=== PATIENT | female | born 1955 | race Caucasian/White ===

== ENCOUNTER 2023-01-01 00:51 | Emergency (ER) | payer OTHER ==
--- OUTSIDE RECORDS SUMMARY | 2023-01-01 00:59 | XMS REPORT | Continuity of Care Document ---
:1955 Author Organization [facility] t Address [address] [place] [address] [address] [place] [address] Care Team Providers Name Role Phone Asked, No Pcp Primary Care Physician Unavailable MANE FORD Attending Clinician Unavailable Maricruz Molina MD Attending Clinician MARICRUZ MOLINA Attending Clinician Unavailable Doctor Unassigned, [place] Attending Clinician Unavailable Livan Garcia Attending Clinician LIVAN DOBBS Attending Clinician Unavailable Pob, [facility] Main Attending Clinician Unavailable Draw, [facility] Attending Clinician Unavailable Payers Payer Name Policy Type Policy Number Effective Date Expiration Date S ource Problems Condition Condition Condition Status Onset Resolution Last Treating Co mments Source Name Details Category Date Date Treatment Clinician Date Urinary Urinary Disease Active Univers incontinen incontinen 9-11 it y of ce, ce, 00:00: [place] unspecifie unspecifie 00 Me dical d type d type Branch Bladder Bladder Disease Active Univers prolapse, prolapse, 07-31 ity of female, female, 00:00: [place] acquired acquired 00 Medica l Branch History of History of Disease Active 2020- U nivers partial 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-31 ity of thyroidect thyroidect [place] seb seb 00 Medical Branch Weight Weight Disease Active 2020- Univers gain gain 01-23 ity of status status 00:00: [place] post post 00 Medical gastric gastric Branch bypass bypass Chronic Chronic Disease Active 2020- Univers obstructiv obstructiv 01-23 it y of e e 00:00: [place] pulmonary pulmonary 00 Medi jocelyn disease, disease, Branch unspecifie unspecifie d 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 00:00: [place] gland gland 00 Medical Branch Orthostati Orthostati Disease Active 2020-0 U nivers c c 3-06 ity of hypotensio hypotensio 00:[place] n 00 [facility] Muscle Muscle Disease Active 2020-0 Univers weakness weakness 2-24 ity of (generaliz (generaliz [place] ed[place] ed[place] 00 Medical Branch History of History of Disease Active 2020-0 U nivers gastric gastric 2-24 ity of bypass bypass 00:00: [place] [facility] Adrenal Adrenal Disease Active 2020-0 Univers adenoma, adenoma, 2-24 ity of unspecifie unspecifie 00:[place] d d 00 Medical laterality laterality Br anch TSH TSH Disease Active 2020-0 Univers (thyroid-s (thyroid-s 2-24 it y of timulating timulating 00:[place] hormone hormone 00 Medical deficiency deficiency Br anch ) ) History of History of Disease Active 2020-0 U nivers thyroid thyroid 2-24 ity of surgery surgery 00:00: [place] 00 Medical Branch Dizziness Dizziness Disease Active 2020-0 Uni vers 2-24 ity of 00:00: [place] 00 Medical Branch Left leg Left leg Disease Active 2015-11 Unive rs pain pain 2-23 ity of 00:00: [place] [facility] Allergies, Adverse Reactions, Alerts Allergy Allergy Status Severity Reaction(s) Onset Inactive Treating Comm ents Source Name Type Date Date Clinician Cipro - Propensi Active Oral ty to 4-19 adverse 00:00: reaction 00 to drug Duloxeti Propensi Active Unknown - 0 Couldn't U nivers ne ty to See comments 3-06 stay ity of adverse 00:00: awake [place] reaction 00 Medical s Branch Gabapent Propensi Active Unknown - 2019-0 Full of Un loi in ty to See comments 3-06 anger, ity of Enacarbi adverse 00:00: HATED [place] l reaction 00 everythin Medic al s g, Branch explosive per patient DULOXETI DRUG Active Unknown-Cmnt 2019-0 Un loi NE INGREDI 3-06 ity of 00:00: [place] 00 Medical Branch GABAPENT DRUG Active Unknown-Cmnt 2019-0 Un loi IN INGREDI 3-06 ity of ENACARBI 00:00: [place] L 00 Medical Branch QUINOLON Drug Active Other-Cmnt Univ ers ES Class 2-24 ity of 00:00: [place] 00 Medical Branch Quinolon Propensi Active Other - See U nivers es ty to comments 2-24 ity of adverse 00:00: [place] reaction 00 Medical s [place] Codeine Propensi Active GI Methodi ty to Intolerance 1-10 st adverse 00:00: Hospita reaction 00 l s to drug Duloxeti Propensi Active Other (See Couldn't Methodi ne ty to Comments) 1-[address] adverse 00:00: awake Hospita reaction 00 l s to drug Gabapent Propensi Active Other (See Full of M ethodi in ty to Comments) 1-10 anger, st [place] adverse 00:00: HATED Hospita l reaction 00 everythin l s to g, drug explosive per patient Paroxeti Propensi Active Other (See Me thodi ne Hcl ty to Comments) 1-10 st adverse 00:00: Hospita reaction 00 l s to drug Ciproflo Propensi Active Anaphylaxis 2015-11 Stomach Univers xacin ty to 2-23 pain ity of adverse 00:00: [place] reaction 00 Medical [facility] Morphine Propensi Active Itching 2015-11 Unive rs ty to 2-23 ity of adverse 00:00: [place] reaction 00 [facility] CIPROFLO DRUG Active Anaphylaxis 2015-11 Uni vers XACIN INGREDI 2-23 ity of 00:00: [place] 00 [facility] MORPHINE DRUG Active ITCHING 2015-11 Univers INGREDI 2-23 ity of 00:00: [place] 00 Medical [place] Morphine Propensi Active Itching 2015- Metho di ty to 2-23 st adverse 00:00: Hospita reaction 00 l s to drug Quinolon Propensi Active Altered 2015-11 Stomach Meth vibha es ty to Mental 2-[address] adverse Status 00:00: Hospita reaction 00 l s to drug Social History Social Habit Start Date Stop Date Quantity Comments Source Exposure to Not sure [facility] SARS-CoV-2 [facility] (event) [place] Tobacco use and 2020-07-31 2020-07-31 Never used Universit y of exposure 00:00:00 00:00:00 [facility] Alcohol intake 2020-07-31 2020-07-31 Current University of 00:00:00 00:00:00 non-drinker of [facility] alcohol Branch (finding) Sex Ass[birth year] [facility] 00:00:00 00:00:00 Smoking Status Start Date Stop Date Source Tobacco smoking consumption Meth [facility] unknown Never smoker [facility] Medical [place] Medications Ordered Filled Start Stop Current Ordering Indication Dosage Frequency Signature Comments Components Source Medication Medication Date Date Medication? Clinician (SIG) Name Name SYMBICORT 2-0 No 160-4.5 INH 9-29 00:00: 00 SYMBICORT 2-0 No 160-4.5 INH 9- 00:00: 00 BUPROPION 2-0 No HCL 75MG 9-28 TAB 00:00: 00 BUPROPION 2022-0 No HCL 75MG 9-28 TAB 00:00: 00 Dose 2-0 No Unknown 8-15 00:00: 00 Dose 2022-0 No Unknown 8-15 00:00: 00 Ventolin 2-0 No 2mcg/ac HFA 90 7-21 tuation mcg/actuati 00:00: on aerosol 00 inhaler Zetia 10 mg 2-0 No 1mg tablet 06-09 00:00: 00 valacyclovi 2022-0 No 1mg r 500 mg 7-21 tablet 00:00: 00 baclofen 10 2-0 No 1mg mg tablet 06-09 00:00: 00 albuterol 2-0 No 3/3 mL sulfate 2.5 7-21 (0.083 mg/3 mL 00:00: %) (0.083 %) 00 solution for nebulizatio n Dose 2-0 No Unknown 06-09 00:00: 00 Ventolin 2022-0 No 2mcg/ac HFA 90 7-21 tuation mcg/actuati 00:00: on aerosol 00 inhaler Zetia 10 mg 2-0 No 1mg tablet 06-09 00:00: 00 valacyclovi 2022-0 No 1mg r 500 mg 7-21 tablet 00:00: 00 baclofen 10 2-0 No 1mg mg tablet 06-09 00:00: 00 albuterol 2022-0 No 3/3 mL sulfate 2.5 7-21 (0.083 mg/3 mL 00:00: %) (0.083 %) 00 solution for nebulizatio n Dose 2021-0 No Unknown 7-21 00:00: 00 Dose 2-0 No Unknown 7-19 00:00: 00 Dose 2-0 No Unknown 7-19 00:00: 00 Dose 2-0 No Unknown 7-19 00:00: 00 Dose 2-0 No Unknown 7-19 00:00: 00 Dose 2-0 No Unknown 7-19 00:00: 00 Dose 2-0 No Unknown 7-19 00:00: 00 Dose 2-0 No Unknown 7-18 00:00: 00 Dose 2-0 No Unknown 7-18 00:00: 00 Dose 2-0 No Unknown 7-18 00:00: 00 Dose 2-0 No Unknown 7-18 00:00: 00 Dose 2-0 No Unknown 7-18 00:00: 00 Dose 2-0 No Unknown 7-18 00:00: 00 Dose 2-0 No Unknown 7-18 00:00: 00 Dose 2-0 No Unknown 7-18 00:00: 00 Zetia 10 mg 2-0 No 1mg tablet 7-14 00:00: 00 tizanidine 2-0 No 1mg 4 mg 7-14 capsule 00:00: 00 Zetia 10 mg 2-0 No 1mg tablet 7-14 00:00: 00 tizanidine 2-0 No 1mg 4 mg 7-14 capsule 00:00: 00 Dose 2-0 No Unknown 4-19 00:00: 00 Dose 2-0 No Unknown 4-19 00:00: 00 Dose 2-0 No Unknown 4-19 00:00: 00 Dose 2-0 No Unknown 4-19 00:00: 00 Dose 2-0 No Unknown 4-19 00:00: 00 Dose 2-0 No Unknown 4-19 00:00: 00 Dose 2-0 No Unknown 4-19 00:00: 00 Dose 2-0 No Unknown 4-19 00:00: 00 Dose 2-0 No Unknown 4-19 00:00: 00 Dose 2-0 No Unknown 4-19 00:00: 00 Dose 2-0 No Unknown 4-19 00:00: 00 Dose 2022-0 No Unknown 4-19 00:00: 00 Dose 2022-0 No Unknown 4-19 00:00: 00 Dose 2-0 No Unknown 4-19 00:00: 00 Dose 2-0 No Unknown 4-19 00:00: 00 Dose 2022-0 No Unknown 4-19 00:00: 00 Dose 2022-0 No Unknown 4-19 00:00: 00 Dose 2-0 No Unknown 4-19 00:00: 00 Dose 2-0 No Unknown 4-19 00:00: 00 Symbicort 2-0 No 2mcg/ac 160 mcg-4.5 4-19 tuation mcg/actuati 00:00: on HFA 00 aerosol inhaler Ventolin 2-0 No 2mcg/ac HFA 90 4-19 tuation mcg/actuati 00:00: on aerosol 00 inhaler valacyclovi 2-0 No 1mg r 500 mg 4-19 tablet 00:00: 00 Dose 2-0 No Unknown 4-19 00:00: 00 valacyclovi 2-0 No 1mg r 500 mg 4-19 tablet 00:00: 00 albuterol 2-0 No 3/3 mL sulfate 2.5 4-19 (0.083 mg/3 mL 00:00: %) (0.083 %) 00 solution for nebulizatio n Dose 2021-0 No Unknown 4-19 00:00: 00 Dose 2-0 No Unknown 4-19 00:00: 00 Dose 2-0 No Unknown 4-19 00:00: 00 Dose 2-0 No Unknown 4-19 00:00: 00 Dose 2-0 No Unknown 4-19 00:00: 00 Dose 2-0 No Unknown 4-19 00:00: 00 Dose 2-0 No Unknown 4-19 00:00: 00 Dose 2-0 No Unknown 4-19 00:00: 00 Dose 2-0 No Unknown 4-19 00:00: 00 Dose 2-0 No Unknown 4-19 00:00: 00 Dose 2-0 No Unknown 4-19 00:00: 00 Dose 2-0 No Unknown 4-19 00:00: 00 Dose 2-0 No Unknown 4-19 00:00: 00 Dose 2022-0 No Unknown 4-19 00:00: 00 Dose 2022-0 No Unknown 4-19 00:00: 00 Dose 2022-0 No Unknown 4-19 00:00: 00 Dose 2022-0 No Unknown 4-19 00:00: 00 Dose 2022-0 No Unknown 4-19 00:00: 00 Dose 2022-0 No Unknown 4-19 00:00: 00 Dose 2022-0 No Unknown 4-19 00:00: 00 Dose 2022-0 No Unknown 4-19 00:00: 00 Dose 2022-0 No Unknown 4-19 00:00: 00 Dose 2022-0 No Unknown 4-19 00:00: 00 Dose 2022-0 No Unknown 4-19 00:00: 00 Dose 2022-0 No Unknown 4-19 00:00: 00 Dose 2022-0 No Unknown 4-19 00:00: 00 Dose 2022-0 No Unknown 4-19 00:00: 00 Dose 2022-0 No Unknown 4-19 00:00: 00 Dose 2022-0 No Unknown 4-19 00:00: 00 Dose 2022-0 No Unknown 4-19 00:00: 00 Dose 2022-0 No Unknown 4-19 00:00: 00 Dose 2022-0 No Unknown 4-19 00:00: 00 Dose 2022-0 No Unknown 4-19 00:00: 00 Dose 2022-0 No Unknown 4-19 00:00: 00 Dose 2022-0 No Unknown 4-19 00:00: 00 Dose 2022-0 No Unknown 4-19 00:00: 00 Dose 2022-0 No Unknown 4-19 00:00: 00 Dose 2022-0 No Unknown 4-19 00:00: 00 Dose 2022-0 No Unknown 4-19 00:00: 00 Dose 2022-0 No Unknown 4-19 00:00: 00 Dose 2022-0 No Unknown 4-19 00:00: 00 Dose 2022-0 No Unknown 4-19 00:00: 00 Dose 2022-0 No Unknown 4-19 00:00: 00 Dose 2022-0 No Unknown 4-19 00:00: 00 Dose 2022-0 No Unknown 4-19 00:00: 00 Dose 2022-0 No Unknown 4-19 00:00: 00 Dose 2022-0 No Unknown 4-19 00:00: 00 Dose 2022-0 No Unknown 4-19 00:00: 00 Dose 2-0 No Unknown 4-19 00:00: 00 Dose 2-0 No Unknown 4-19 00:00: 00 Dose 2-0 No Unknown 4-19 00:00: 00 Symbicort 2-0 No 2mcg/ac 160 mcg-4.5 4-19 tuation mcg/actuati 00:00: on HFA 00 aerosol inhaler Ventolin 2-0 No 2mcg/ac HFA 90 4-19 tuation mcg/actuati 00:00: on aerosol 00 inhaler valacyclovi 2-0 No 1mg r 500 mg 4-19 tablet 00:00: 00 Dose 2-0 No Unknown 4-19 00:00: 00 valacyclovi 2-0 No 1mg r 500 mg 4-19 tablet 00:00: 00 albuterol 2-0 No 3/3 mL sulfate 2.5 4-19 (0.083 mg/3 mL 00:00: %) (0.083 %) 00 solution for nebulizatio n Dose 2021-0 No Unknown 4-19 00:00: 00 Dose 2-0 No Unknown 4-19 00:00: 00 Dose 2-0 No Unknown 4-19 00:00: 00 Dose 2-0 No Unknown 4-19 00:00: 00 Dose 2-0 No Unknown 4-19 00:00: 00 Dose 2-0 No Unknown 4-19 00:00: 00 Dose 2-0 No Unknown 4-19 00:00: 00 Dose 2-0 No Unknown 4-19 00:00: 00 Dose 2-0 No Unknown 4-19 00:00: 00 Dose 2-0 No Unknown 4-19 00:00: 00 Dose 2-0 No Unknown 4-19 00:00: 00 Dose 2-0 No Unknown 4-19 00:00: 00 Dose 2-0 No Unknown 4-19 00:00: 00 Dose 2-0 No Unknown 4-19 00:00: 00 Dose 2-0 No Unknown 4-19 00:00: 00 Dose 2-0 No Unknown 4-19 00:00: 00 Dose 2-0 No Unknown 4-19 00:00: 00 Dose 2022-0 No Unknown 4-19 00:00: 00 Dose 2022-0 No Unknown 4-19 00:00: 00 Dose 2022-0 No Unknown 4-19 00:00: 00 Dose 2022-0 No Unknown 4-19 00:00: 00 Dose 2022-0 No Unknown 4-19 00:00: 00 Dose 2022-0 No Unknown 4-19 00:00: 00 Dose 2022-0 No Unknown 4-19 00:00: 00 Dose 2022-0 No Unknown 4-19 00:00: 00 Dose 2022-0 No Unknown 4-19 00:00: 00 Dose 2022-0 No Unknown 4-19 00:00: 00 Dose 2022-0 No Unknown 4-19 00:00: 00 Dose 2022-0 No Unknown 4-19 00:00: 00 Dose 2022-0 No Unknown 4-19 00:00: 00 Dose 2022-0 No Unknown 4-19 00:00: 00 Dose 2022-0 No Unknown 4-19 00:00: 00 Dose 2022-0 No Unknown 1-10 00:00: 00 Dose 2022-0 No Unknown 1-10 00:00: 00 Dose 2022-0 No Unknown 1-10 00:00: 00 Dose 2022-0 No Unknown 1-10 00:00: 00 Dose 2022-0 No Unknown 1-10 00:00: 00 Dose 2022-0 No Unknown 1-10 00:00: 00 valacyclovi 2021-1 No 1mg r 500 mg 1-18 tablet 00:00: 00 valacyclovi 1-1 No 1mg r 500 mg 1-18 tablet 00:00: 00 valacyclovi 2021-1 No 1mg r 500 mg 1-16 tablet 00:00: 00 valacyclovi 2021-1 No 1mg r 500 mg 1-16 tablet 00:00: 00 Dose 2021-1 No Unknown 1-02 00:00: 00 Dose 2021-1 No Unknown 1-02 00:00: 00 valacyclovi 2021-1 No 1mg r 500 mg 0-25 tablet 00:00: 00 valacyclovi 2021-1 No 1mg r 500 mg 0-25 tablet 00:00: 00 Dose 2021-1 No Unknown 0-21 00:00: 00 Dose 1-1 No Unknown 0-21 00:00: 00 tizanidine 2021-1 No 1mg 4 mg 0-21 capsule 00:00: 00 Dose 2021-1 No Unknown 0-21 00:00: 00 Dose 2021-1 No Unknown 0-21 00:00: 00 tizanidine 2021-1 No 1mg 4 mg 0-21 capsule 00:00: 00 valacyclovi 2021-0 No 1mg r 500 mg 9-07 tablet 00:00: 00 valacyclovi 2021-0 No 1mg r 500 mg 9-07 tablet 00:00: 00 Ventolin 2021-0 No 2mcg/ac HFA 90 8-20 tuation mcg/actuati 00:00: on aerosol 00 inhaler Dose 1-0 No Unknown 8-20 00:00: 00 valacyclovi 2021-0 No 1mg r 500 mg 8-20 tablet 00:00: 00 Ventolin 2021-0 No 2mcg/ac HFA 90 8-20 tuation mcg/actuati 00:00: on aerosol 00 inhaler Dose 1-0 No Unknown 8-20 00:00: 00 valacyclovi 2021-0 No 1mg r 500 mg 8-20 tablet 00:00: 00 Zetia 10 mg 2021-0 No 1mg tablet 7-20 00:00: 00 valacyclovi 2021-0 No 1mg r 500 mg 7-20 tablet 00:00: 00 tizanidine 2021-0 No 1mg 4 mg 7-20 capsule 00:00: 00 Zetia 10 mg 2021-0 No 1mg tablet 7-20 00:00: 00 valacyclovi 2021-0 No 1mg r 500 mg 7-20 tablet 00:00: 00 tizanidine 2021-0 No 1mg 4 mg 7-20 capsule 00:00: 00 tizanidine 2021-0 No 1mg 4 mg 6-10 capsule 00:00: 00 tizanidine 2021-0 No 1mg 4 mg 6-10 capsule 00:00: 00 tizanidine 2021-0 No 1mg 4 mg 6-10 capsule 00:00: 00 tizanidine 2021-0 No 1mg 4 mg 6-10 capsule 00:00: 00 lisinopril 2021-0 No 1mg 10 mg 6-07 tablet 00:00: 00 valacyclovi 1-0 No 1mg r 500 mg 6-07 tablet 00:00: 00 Zetia 10 mg 1-0 No 1mg tablet 04-26 00:00: 00 tizanidine 1-0 No 1mg 4 mg 6-07 capsule 00:00: 00 lisinopril 1-0 No 1mg 10 mg 6-07 tablet 00:00: 00 valacyclovi 1-0 No 1mg r 500 mg 6-07 tablet 00:00: 00 Zetia 10 mg 1-0 No 1mg tablet 04-26 00:00: 00 tizanidine 1-0 No 1mg 4 mg 6-07 capsule 00:00: 00 Ventolin 1-0 No 2mcg/ac HFA 90 1-25 tuation mcg/actuati 00:00: on aerosol 00 inhaler Advair 1-0 No 1mcg/do Diskus 250 1-25 se mcg-50 00:00: mcg/dose 00 powder for inhalation Zetia 10 mg 2020-0 No 1mg tablet 25 00:00: 00 valacyclovi 1-0 No 1mg r 500 mg 1-25 tablet 00:00: 00 lisinopril 1-0 No 1mg 10 mg 1-25 tablet 00:00: 00 famotidine 1-0 No 1mg 20 mg 1-25 tablet 00:00: 00 tizanidine 1-0 No 1mg 4 mg 1-25 capsule 00:00: 00 albuterol 1-0 No 3/3 mL sulfate 2.5 1-25 (0.083 mg/3 mL 00:00: %) (0.083 %) 00 solution for nebulizatio n Ventolin 1-0 No 2mcg/ac HFA 90 1-25 tuation mcg/actuati 00:00: on aerosol 00 inhaler Advair 1-0 No 1mcg/do Diskus 250 1-25 se mcg-50 00:00: mcg/dose 00 powder for inhalation Zetia 10 mg 1-0 No 1mg tablet 25 00:00: 00 valacyclovi 2021-0 No 1mg r 500 mg 1-25 tablet 00:00: 00 lisinopril 2021-0 No 1mg 10 mg 1-25 tablet 00:00: 00 famotidine 1-0 No 1mg 20 mg 1-25 tablet 00:00: 00 tizanidine 1-0 No 1mg 4 mg 1-25 capsule 00:00: 00 albuterol 1-0 No 3/3 mL sulfate 2.5 -25 (0.083 mg/3 mL 00:00: %) (0.083 %) 00 solution for nebulizatio n Zetia 10 mg 2020-0 No 1mg tablet 1- 00:00: 00 Zetia 10 mg 2020-0 No 1mg tablet 113 00:00: 00 Diflucan 2020-1 No 1mg 150 mg 1-04 tablet 00:00: 00 Diflucan 2020-1 No 1mg 150 mg 1-04 tablet 00:00: 00 ezetimibe 2020-1 No 1mg 10 0-30 mg-simvasta 00:00: tin 10 mg 00 tablet valacyclovi 2020-1 No 1mg r 500 mg 0-30 tablet 00:00: 00 ezetimibe 2020-1 No 1mg 10 0-30 mg-simvasta 00:00: tin 10 mg 00 tablet valacyclovi 2020-1 No 1mg r 500 mg 0-30 tablet 00:00: 00 ezetimibe 2020-1 No 1mg 10 0-27 mg-simvasta 00:00: tin 10 mg 00 tablet ezetimibe 2020-1 No 1mg 10 0-27 mg-simvasta 00:00: tin 10 mg 00 tablet Zetia 10 mg 2019-1 No 1mg tablet 0-13 00:00: 00 Zetia 10 mg 2019-1 No 1mg tablet 0-13 00:00: 00 valacyclovi 2020-0 No 1mg r 500 mg 6-23 tablet 00:00: 00 lisinopril 2020-0 No 1mg 10 mg 6-23 tablet 00:00: 00 Zetia 10 mg 2020-0 No 1mg tablet 6-23 00:00: 00 valacyclovi 2020-0 No 1mg r 500 mg 6-23 tablet 00:00: 00 lisinopril 2020-0 No 1mg 10 mg 6-23 tablet 00:00: 00 Zetia 10 mg 2020-0 No 1mg tablet 6-23 00:00: 00 Zetia 10 mg 2020-0 No 1mg tablet 4-20 00:00: 00 pravastatin 2020-0 No 1mg 20 mg 4-20 tablet 00:00: 00 lisinopril 2020-0 No 1mg 10 mg 4-20 tablet 00:00: 00 Zetia 10 mg 2020-0 No 1mg tablet 4-20 00:00: 00 pravastatin 2020-0 No 1mg 20 mg 4-20 tablet 00:00: 00 lisinopril 2020-0 No 1mg 10 mg 4-20 tablet 00:00: 00 lisinopril 2020-0 2020- No 10mg Take 10 mg Univers 10 mg 01-23-06 by mouth ity of tablet 18:11: 00:00 daily. [place] 48 :00 [facility] Branch lisinopril 2020-0 2020- No 10mg Take 10 mg Univers 10 mg 01-2306 by mouth ity of tablet 18:11: 00:00 daily. [place] 48 :00 [facility] Branch polyethylen 2020-0 Yes Take by Uni vers e glycol 3-06 mouth. ity of 3350 17:24: [place] (MIRALAX Medical ORAL) Branch melatonin 2020-0 Yes Take by Unive rs 10 mg Tab 3-06 mouth. ity of 17:24: [address] Branch ferrous 2020-0 Yes Take by Univers sulfate 3-06 mouth. ity of (IRON ORAL) 17:24: [address] Branch Lactobacill 2020-0 Yes Take by Uni vers us 3-06 mouth. ity of acidophilus 17:24: [place] (PROBIOTIC Medical ORAL) Branch FOLIC ACID 2020-0 Yes Take by Univ ers ORAL 3-06 mouth. ity of 17:24: [address] Branch vitamin E 2020-0 Yes Take by Unive rs acetate 3-06 mouth. ity of (VITAMIN E 17:24: [facility]) Medical Branch calcium 2020-0 Yes Take by Univers carbonate/v 3-06 mouth. ity of itamin D3 17:24: [place] (VITAMIN Medical D-3 ORAL) Branch MAGNESIUM 2020-0 Yes Take by Unive rs ORAL 3-06 mouth. ity of 17:24: [address] Branch BIOTIN ORAL 2020-0 Yes Take by Uni vers 3-06 mouth. ity of 17:24: [address] Branch ezetimibe 2020-0 Yes 10mg Take 10 mg Un loi 10 mg 3-06 by mouth ity of tablet 17:24: daily. [address] amoxicillin 2020-0 Yes 1{tbl} Take 1 Un loi -clavulanat 3-06 tablet by ity of e 875-125 17:24: mouth 2 [place] mg per 27 (two) Medical tablet times Branch daily. polyethylen 2020-0 Yes Take by Uni vers e glycol 3-06 mouth. ity of 3350 17:24: [place] (MIRALAX 27 Medical ORAL) Branch melatonin 2020-0 Yes Take by Unive rs 10 mg Tab 3-06 mouth. ity of 17:24: [address] ferrous 2020-0 Yes Take by Univers sulfate 3-06 mouth. ity of (IRON ORAL) 17:24: [address] Lactobacill 2020-0 Yes Take by Uni vers us 3-06 mouth. ity of acidophilus 17:24: [place] (PROBIOTIC Medical ORAL) Branch FOLIC ACID 2020-0 Yes Take by Univ ers ORAL 3-06 mouth. ity of 17:24: [address] vitamin E 2020-0 Yes Take by Unive rs acetate 3-06 mouth. ity of (VITAMIN E 17:24: [place] ORAL) Medical Branch calcium 2020-0 Yes Take by Univers carbonate/v 3-06 mouth. ity of itamin D3 17:24: [place] (VITAMIN Medical D-3 ORAL) Branch MAGNESIUM 2020-0 Yes Take by Unive rs ORAL 3-06 mouth. ity of 17:24: [address] BIOTIN ORAL 2020-0 Yes Take by Uni vers 3-06 mouth. ity of 17:24: [address] ezetimibe 2020-0 Yes 10mg Take 10 mg Un loi 10 mg 3-06 by mouth ity of tablet 17:24: daily. [address] amoxicillin 2020-0 Yes 1{tbl} Take 1 Un loi -clavulanat 3-06 tablet by ity of e 875-125 17:24: mouth 2 [place] mg per 27 (two) Medical tablet times Branch daily. polyethylen 2020-0 Yes Take by Uni vers e glycol 3-06 mouth. ity of 3350 17:24: [place] (MIRALAX 27 Medical ORAL) Branch melatonin 2020-0 Yes Take by Unive rs 10 mg Tab 3-06 mouth. ity of 17:24: [place] 27 Medical Branch ferrous 2020-0 Yes Take by Univers sulfate 3-06 mouth. ity of (IRON ORAL) 17:24: [place] [address] Medical Branch Lactobacill 2020-0 Yes Take by Uni vers us 3-06 mouth. ity of acidophilus 17:24: [place] (PROBIOTIC Medical ORAL) Branch FOLIC ACID 2020-0 Yes Take by Univ ers ORAL 3-06 mouth. ity of 17:24: [address] Branch vitamin E 2020-0 Yes Take by Unive rs acetate 3-06 mouth. ity of (VITAMIN E 17:24: [place] ORAL) Medical Branch calcium 2020-0 Yes Take by Univers carbonate/v 3-06 mouth. ity of itamin D3 17:24: [place] (VITAMIN Medical D-3 ORAL) Branch MAGNESIUM 2020-0 Yes Take by Unive rs ORAL 3-06 mouth. ity of 17:24: [address] Branch BIOTIN ORAL 2020-0 Yes Take by Uni vers 3-06 mouth. ity of 17:24: [address] Branch ezetimibe 2020-0 Yes 10mg Take 10 mg Un loi 10 mg 3-06 by mouth ity of tablet 17:24: daily. [address] Branch amoxicillin 2020-0 Yes 1{tbl} Take 1 Un loi -clavulanat 3-06 tablet by ity of e 875-125 17:24: mouth 2 [place] mg per (two) Medical tablet times Branch daily. polyethylen 2020-0 Yes Take by Uni vers e glycol 3-06 mouth. ity of 3350 17:24: [place] (MIRALAX 27 Medical ORAL) Branch melatonin 2020-0 Yes Take by Unive rs 10 mg Tab 3-06 mouth. ity of 17:24: [address] Branch ferrous 2020-0 Yes Take by Univers sulfate 3-06 mouth. ity of (IRON ORAL) 17:24: [place] [address] Medical Branch Lactobacill 2020-0 Yes Take by Uni vers us 3-06 mouth. ity of acidophilus 17:24: [place] (PROBIOTIC Medical ORAL) Branch FOLIC ACID 2020-0 Yes Take by Univ ers ORAL 3-06 mouth. ity of 17:24: [address] Branch vitamin E 2020-0 Yes Take by Unive rs acetate 3-06 mouth. ity of (VITAMIN E 17:24: [place] ORAL) Medical Branch calcium 2020-0 Yes Take by Univers carbonate/v 3-06 mouth. ity of itamin D3 17:24: [place] (VITAMIN Medical D-3 ORAL) Branch MAGNESIUM 2020-0 Yes Take by Unive rs ORAL 3-06 mouth. ity of 17:24: [place] [address] Medical Branch BIOTIN ORAL 2020-0 Yes Take by Uni vers 3-06 mouth. ity of 17:24: [address] Branch ezetimibe 2020-0 Yes 10mg Take 10 mg Un loi 10 mg 3-06 by mouth ity of tablet 17:24: daily. [address] amoxicillin 2020-0 Yes 1{tbl} Take 1 Un loi -clavulanat 3-06 tablet by ity of e 875-125 17:24: mouth 2 [place] mg per (two) Medical tablet times Branch daily. polyethylen 2020-0 Yes Take by Uni vers e glycol 3-06 mouth. ity of 3350 17:24: [place] (MIRALAX 27 Medical ORAL) Branch melatonin 2020-0 Yes Take by Unive rs 10 mg Tab 3-06 mouth. ity of 17:24: [address] ferrous 2020-0 Yes Take by Univers sulfate 3-06 mouth. ity of (IRON ORAL) 17:24: [address] Branch Lactobacill 2020-0 Yes Take by Uni vers us 3-06 mouth. ity of acidophilus 17:24: [place] (PROBIOTIC Medical ORAL) Branch FOLIC ACID 2020-0 Yes Take by Univ ers ORAL 3-06 mouth. ity of 17:24: [address] vitamin E 2020-0 Yes Take by Unive rs acetate 3-06 mouth. ity of (VITAMIN E 17:24: [place] ORAL) Medical Branch calcium 2020-0 Yes Take by [facility] carbonate/v 3-06 mouth. ity of itamin D3 17:24: [place] (VITAMIN Medical D-3 ORAL) Branch MAGNESIUM 2020-0 Yes Take by Unive rs ORAL 3-06 mouth. ity of 17:24: [address] BIOTIN ORAL 2020-0 Yes Take by Uni vers 3-06 mouth. ity of 17:24: [address] ezetimibe 2020-0 Yes 10mg Take 10 mg Un loi 10 mg 3-06 by mouth ity of tablet 17:24: daily. [address] amoxicillin 2020-0 Yes 1{tbl} Take 1 Un loi -clavulanat 3-06 tablet by ity of e 875-125 17:24: mouth 2 [place] mg per 27 (two) Medical tablet times Branch daily. buPROPion 2020-0 Yes 100mg Take 100 Uni vers 100 mg 3-06 mg by ity of tablet 17:21: mouth 3 [place] 56 (three) Medical times Branch daily. valACYclovi 2020-0 Yes 500mg Take 500 U nivers r 500 mg 3-06 mg by ity of tablet 17:21: mouth [place] 56 daily. Medical Branch buPROPion 2020-0 Yes 100mg Take 100 Uni vers 100 mg 3-06 mg by ity of tablet 17:21: mouth 3 [place] 56 (three) Medical times Branch daily. valACYclovi 2020-0 Yes 500mg Take 500 U nivers r 500 mg 3-06 mg by ity of tablet 17:21: mouth [place] 56 daily. Medical Branch buPROPion 2020-0 Yes 100mg Take 100 Uni vers 100 mg 3-06 mg by ity of tablet 17:21: mouth 3 [place] 56 (three) Medical times Branch daily. valACYclovi 2020-0 Yes 500mg Take 500 U nivers r 500 mg 3-06 mg by ity of tablet 17:21: mouth [place] 56 daily. Medical Branch buPROPion 2020-0 Yes 100mg Take 100 Uni vers 100 mg 3-06 mg by ity of tablet 17:21: mouth 3 [place] 56 (three) Medical times Branch daily. valACYclovi 2020-0 Yes 500mg Take 500 U nivers r 500 mg 3-06 mg by ity of tablet 17:21: mouth [place] 56 daily. Medical Branch buPROPion 2020-0 Yes 100mg Take 100 Uni vers 100 mg 3-06 mg by ity of tablet 17:21: mouth 3 [place] 56 (three) Medical times Branch daily. valACYclovi 2020-0 Yes 500mg Take 500 U nivers r 500 mg 3-06 mg by ity of tablet 17:21: mouth [place] 56 daily. Medical Branch buPROPion 2020-0 Yes 100mg Take 100 Uni vers 100 mg 2-24 mg by ity of tablet 20:03: mouth 3 [place] 01 (three) Medical times Branch daily. lisinopril 2020-0 Yes 10mg Take 10 mg U nivers 10 mg 2-24 by mouth ity of tablet 20:03: daily. [place] [facility] valACYclovi 2020-0 Yes 500mg Take 500 U nivers r 500 mg 2-24 mg by ity of tablet 20:03: mouth daily. Medical Branch polyethylen 2020-0 Yes Take by Uni vers e glycol 2-24 mouth. ity of 3350 20:03: [place] (MIRALAX 01 Medical ORAL) Branch melatonin 2020-0 Yes Take by Unive rs 10 mg Tab 2-24 mouth. ity of 20:03: [place] [address] Medical Branch ferrous 2020-0 Yes Take by [facility] sulfate 2-24 mouth. ity of (IRON ORAL) 20:03: [place] [address] Medical Branch Lactobacill 2020-0 Yes Take by Uni vers us 2-24 mouth. ity of acidophilus 20:03: [place] (PROBIOTIC Medical ORAL) Branch FOLIC ACID 2020-0 Yes Take by Univ ers ORAL 2-24 mouth. ity of 20:03: [place] [address] Medical Branch vitamin E 2020-0 Yes Take by Unive rs acetate 2-24 mouth. ity of (VITAMIN E 20:03: [place] ORAL) Medical Branch calcium 2020-0 Yes Take by [facility] carbonate/v 2-24 mouth. ity of itamin D3 20:03: [place] (VITAMIN Medical D-3 ORAL) Branch MAGNESIUM 2020-0 Yes Take by Unive rs ORAL 2-24 mouth. ity of 20:03: [place] [address] Medical Branch BIOTIN ORAL 2020-0 Yes Take by Uni vers 2-24 mouth. ity of 20:03: [place] [address] [facility] Branch ezetimibe 2020-0 Yes 10mg Take 10 mg Un loi 10 mg 2-24 by mouth ity of tablet 20:03: daily. [place] [address] Medical Branch amoxicillin 2020-0 Yes 1{tbl} Take 1 Un loi -clavulanat 2-24 tablet by ity of e 875-125 20:03: mouth 2 [place] mg per (two) Medical tablet times Branch daily. Lactobacill 2020-0 Yes Take by Uni vers us 2-24 mouth. ity of acidophilus 20:03: [place] (ACIDOPHILU 01 Medical S ORAL) Branch buPROPion 2020-0 Yes 100mg Take 100 Uni vers 100 mg 2-24 mg by ity of tablet 20:03: mouth 3 [place] 01 (three) Medical times Branch daily. lisinopril 2020-0 Yes 10mg Take 10 mg U nivers 10 mg 2-24 by mouth ity of tablet 20:03: daily. [place] [facility] valACYclovi 2020-0 Yes 500mg Take 500 U nivers r 500 mg 2-24 mg by ity of tablet 20:03: mouth daily. Medical Branch polyethylen 2020-0 Yes Take by Uni vers e glycol 2-24 mouth. ity of 3350 20:03: [place] (MIRALAX Medical ORAL) Branch melatonin 2020-0 Yes Take by Unive rs 10 mg Tab 2-24 mouth. ity of 20:03: [place] [facility] ferrous 2020-0 Yes Take by [facility] sulfate 2-24 mouth. ity of (IRON ORAL) 20:03: [place] [facility] Lactobacill 2020-0 Yes Take by Uni vers us 2-24 mouth. ity of acidophilus 20:03: [place] (PROBIOTIC Medical ORAL) Branch FOLIC ACID 2020-0 Yes Take by Univ ers ORAL 2-24 mouth. ity of 20:03: [place] [facility] vitamin E 2020-0 Yes Take by Unive rs acetate 2-24 mouth. ity of (VITAMIN E 20:03: [place] ORAL) Medical Branch calcium 2020-0 Yes Take by [facility] carbonate/v 2-24 mouth. ity of itamin D3 20:03: [place] (VITAMIN Medical D-3 ORAL) Branch MAGNESIUM 2020-0 Yes Take by Unive rs ORAL 2-24 mouth. ity of 20:03: [place] [facility] BIOTIN ORAL 2020-0 Yes Take by Uni vers 2-24 mouth. ity of 20:03: [place] [facility] ezetimibe 2020-0 Yes 10mg Take 10 mg Un loi 10 mg 2-24 by mouth ity of tablet 20:03: daily. [place] [facility] amoxicillin 2020-0 Yes 1{tbl} Take 1 Un loi -clavulanat 2-24 tablet by ity of e 875-125 20:03: mouth 2 [place] mg per (two) Medical tablet times Branch daily. Lactobacill 2020-0 Yes Take by Uni vers us 2-24 mouth. ity of acidophilus 20:03: [place] (ACIDOPHILU Medical S ORAL) Branch buPROPion 2020-0 Yes 100mg Take 100 Uni vers 100 mg 2-24 mg by ity of tablet 20:03: mouth 3 [place] 01 (three) Medical times Branch daily. lisinopril 2020-0 Yes 10mg Take 10 mg U nivers 10 mg 2-24 by mouth ity of tablet 20:03: daily. [place] [facility] valACYclovi 2020-0 Yes 500mg Take 500 U nivers r 500 mg 2-24 mg by ity of tablet 20:03: mouth daily. Medical Branch polyethylen 2020-0 Yes Take by Uni vers e glycol 2-24 mouth. ity of 3350 20:03: [place] (MIRALAX Medical ORAL) Branch melatonin 2020-0 Yes Take by Unive rs 10 mg Tab 2-24 mouth. ity of 20:03: [place] [facility] ferrous 2020-0 Yes Take by [facility] sulfate 2-24 mouth. ity of (IRON ORAL) 20:03: [place] [facility] Lactobacill 2020-0 Yes Take by Uni vers us 2-24 mouth. ity of acidophilus 20:03: [place] (PROBIOTIC 01 Medical ORAL) Branch FOLIC ACID 2020-0 Yes Take by Univ ers ORAL 2-24 mouth. ity of 20:03: [place] [facility] vitamin E 2020-0 Yes Take by Unive rs acetate 2-24 mouth. ity of (VITAMIN E 20:03: [place] ORAL) Medical Branch calcium 2020-0 Yes Take by [facility] carbonate/v 2-24 mouth. ity of itamin D3 20:03: [place] (VITAMIN Medical D-3 ORAL) Branch MAGNESIUM 2020-0 Yes Take by Unive rs ORAL 2-24 mouth. ity of 20:03: [place] [facility] BIOTIN ORAL 2020-0 Yes Take by Uni vers 2-24 mouth. ity of 20:03: [place] [facility] ezetimibe 2020-0 Yes 10mg Take 10 mg Un loi 10 mg 2-24 by mouth ity of tablet 20:03: daily. [place] [facility] amoxicillin 2020-0 Yes 1{tbl} Take 1 Un loi -clavulanat 2-24 tablet by ity of e 875-125 20:03: mouth 2 [place] mg per (two) Medical tablet times Branch daily. Lactobacill 2020-0 Yes Take by Uni vers us 2-24 mouth. ity of acidophilus 20:03: [place] (ACIDOPHILU Medical S ORAL) Branch buPROPion 2020-0 Yes 100mg Take 100 Uni vers 100 mg 2-24 mg by ity of tablet 20:03: mouth 3 [place] 01 (three) Medical times Branch daily. lisinopril 2020-0 Yes 10mg Take 10 mg U nivers 10 mg 2-24 by mouth ity of tablet 20:03: daily. [place] [facility] valACYclovi 2020-0 Yes 500mg Take 500 U nivers r 500 mg 2-24 mg by ity of tablet 20:03: mouth [place] daily. Medical Branch polyethylen 2020-0 Yes Take by Uni vers e glycol 2-24 mouth. ity of 3350 20:03: [place] (MIRALAX Medical ORAL) Branch melatonin 2020-0 Yes Take by Unive rs 10 mg Tab 2-24 mouth. ity of 20:03: [place] [facility] ferrous 2020-0 Yes Take by [facility] sulfate 2-24 mouth. ity of (IRON ORAL) 20:03: [place] [address] [facility] Branch Lactobacill 2020-0 Yes Take by Uni vers us 2-24 mouth. ity of acidophilus 20:03: [place] (PROBIOTIC Medical ORAL) Branch FOLIC ACID 2020-0 Yes Take by Univ ers ORAL 2-24 mouth. ity of 20:03: [place] [facility] vitamin E 2020-0 Yes Take by Unive rs acetate 2-24 mouth. ity of (VITAMIN E 20:03: [place] ORAL) Medical Branch calcium 2020-0 Yes Take by [facility] carbonate/v 2-24 mouth. ity of itamin D3 20:03: [place] (VITAMIN Medical D-3 ORAL) Branch MAGNESIUM 2020-0 Yes Take by Unive rs ORAL 2-24 mouth. ity of 20:03: [place] [facility] BIOTIN ORAL 2020-0 Yes Take by Uni vers 2-24 mouth. ity of 20:03: [place] [facility] ezetimibe 2020-0 Yes 10mg Take 10 mg Un loi 10 mg 2-24 by mouth ity of tablet 20:03: daily. [place] [facility] amoxicillin 2020-0 Yes 1{tbl} Take 1 Un loi -clavulanat 2-24 tablet by ity of e 875-125 20:03: mouth 2 [place] mg per (two) Medical tablet times Branch daily. Lactobacill 2020-0 Yes Take by Uni vers us 2-24 mouth. ity of acidophilus 20:03: [place] (ACIDOPHILU Medical S ORAL) Branch Lactobacill 2020-0 Yes Take by Uni vers us 2-24 mouth. ity of acidophilus 20:03: [place] (ACIDOPHILU 01 Medical S ORAL) Branch Lactobacill 2020-0 Yes Take by Uni vers us 2-24 mouth. ity of acidophilus 20:03: [place] (ACIDOPHILU 01 Medical S ORAL) Branch buPROPion 2020-0 Yes 100mg Take 100 Uni vers 100 mg 2-24 mg by ity of tablet 20:03: mouth 3 [place] (three) Medical times Branch daily. lisinopril 2020-0 Yes 10mg Take 10 mg U nivers 10 mg 2-24 by mouth ity of tablet 20:03: daily. [place] [facility] Lactobacill 2020-0 Yes Take by Uni vers us 2-24 mouth. ity of acidophilus 20:03: [place] (ACIDOPHILU 01 Medical S ORAL) Branch valACYclovi 2020-0 Yes 500mg Take 500 U nivers r 500 mg 2-24 mg by ity of tablet 20:03: mouth [place] daily. Medical Branch polyethylen 2020-0 Yes Take by Uni vers e glycol 2-24 mouth. ity of 3350 20:03: [place] (MIRALAX 01 Medical ORAL) Branch melatonin 2020-0 Yes Take by Unive rs 10 mg Tab 2-24 mouth. ity of 20:03: [place] [address] Medical Branch Lactobacill 2020-0 Yes Take by Uni vers us 2-24 mouth. ity of acidophilus 20:03: [place] (ACIDOPHILU 01 Medical S ORAL) Branch ferrous 2020-0 Yes Take by [facility] sulfate 2-24 mouth. ity of (IRON ORAL) 20:03: [place] [address] Medical Branch Lactobacill 2020-0 Yes Take by Uni vers us 2-24 mouth. ity of acidophilus 20:03: [place] (PROBIOTIC 01 Medical ORAL) Branch FOLIC ACID 2020-0 Yes Take by Univ ers ORAL 2-24 mouth. ity of 20:03: [place] [address] Medical Branch Lactobacill 2020-0 Yes Take by Uni vers us 2-24 mouth. ity of acidophilus 20:03: [place] (ACIDOPHILU 01 Medical S ORAL) Branch vitamin E 2020-0 Yes Take by Unive rs acetate 2-24 mouth. ity of (VITAMIN E 20:03: [place] ORAL) 01 Medical Branch calcium 2020-0 Yes Take by Univers carbonate/v 2-24 mouth. ity of itamin D3 20:03: [place] (VITAMIN 01 Medical D-3 ORAL) Branch MAGNESIUM 2020-0 Yes Take by Unive rs ORAL 2-24 mouth. ity of 20:03: [place] [facility] BIOTIN ORAL 2020-0 Yes Take by Uni vers 2-24 mouth. ity of 20:03: [place] [facility] ezetimibe 2020-0 Yes 10mg Take 10 mg Un loi 10 mg 2-24 by mouth ity of tablet 20:03: daily. [place] [facility] amoxicillin 2020-0 Yes 1{tbl} Take 1 Un loi -clavulanat 2-24 tablet by ity of e 875-125 20:03: mouth 2 [place] mg per (two) Medical tablet times Branch daily. Lactobacill 2020-0 Yes Take by Uni vers us 2-24 mouth. ity of acidophilus 20:03: [place] (ACIDOPHILU Medical S ORAL) Branch buPROPion 2020-0 Yes 100mg Take 100 Uni vers 100 mg 2-24 mg by ity of tablet 20:03: mouth 3 [place] (three) Medical times Branch daily. lisinopril 2020-0 Yes 10mg Take 10 mg U nivers 10 mg 2-24 by mouth ity of tablet 20:03: daily. [place] [facility] valACYclovi 2020-0 Yes 500mg Take 500 U nivers r 500 mg 2-24 mg by ity of tablet 20:03: mouth daily. Medical Branch polyethylen 2020-0 Yes Take by Uni vers e glycol 2-24 mouth. ity of 3350 20:03: [place] (MIRALAX Medical ORAL) Branch melatonin 2020-0 Yes Take by Unive rs 10 mg Tab 2-24 mouth. ity of 20:03: [place] [facility] ferrous 2020-0 Yes Take by [facility] sulfate 2-24 mouth. ity of (IRON ORAL) 20:03: [place] [facility] Lactobacill 2020-0 Yes Take by Uni vers us 2-24 mouth. ity of acidophilus 20:03: [place] (PROBIOTIC Medical ORAL) Branch FOLIC ACID 2020-0 Yes Take by Univ ers ORAL 2-24 mouth. ity of 20:03: [place] [facility] vitamin E 2020-0 Yes Take by Unive rs acetate 2-24 mouth. ity of (VITAMIN E 20:03: [place] ORAL) Medical Branch calcium 2020-0 Yes Take by [facility] carbonate/v 2-24 mouth. ity of itamin D3 20:03: [place] (VITAMIN Medical D-3 ORAL) Branch MAGNESIUM 2020-0 Yes Take by Unive rs ORAL 2-24 mouth. ity of 20:03: [place] [facility] BIOTIN ORAL 2020-0 Yes Take by Uni vers 2-24 mouth. ity of 20:03: [place] [facility] ezetimibe 2020-0 Yes 10mg Take 10 mg Un loi 10 mg 2-24 by mouth ity of tablet 20:03: daily. [place] [address] Medical Branch amoxicillin 2020-0 Yes 1{tbl} Take 1 Un loi -clavulanat 2-24 tablet by ity of e 875-125 20:03: mouth 2 [place] mg per (two) Medical tablet times Branch daily. Lactobacill 2020-0 Yes Take by Uni vers us 2-24 mouth. ity of acidophilus 20:03: [place] (ACIDOPHILU Medical S ORAL) Branch buPROPion 2020-0 Yes 100mg Take 100 Uni vers 100 mg 2-24 mg by ity of tablet 20:03: mouth 3 [place] (three) Medical times Branch daily. lisinopril 2020-0 Yes 10mg Take 10 mg U nivers 10 mg 2-24 by mouth ity of tablet 20:03: daily. [place] [address] Medical Branch valACYclovi 2020-0 Yes 500mg Take 500 U nivers r 500 mg 2-24 mg by ity of tablet 20:03: mouth daily. Medical Branch polyethylen 2020-0 Yes Take by Uni vers e glycol 2-24 mouth. ity of 3350 20:03: [place] (MIRALAX Medical ORAL) Branch melatonin 2020-0 Yes Take by Unive rs 10 mg Tab 2-24 mouth. ity of 20:03: [place] [address] Medical Branch ferrous 2020-0 Yes Take by Univers sulfate 2-24 mouth. ity of (IRON ORAL) 20:03: [place] [address] Medical Branch Lactobacill 2020-0 Yes Take by Uni vers us 2-24 mouth. ity of acidophilus 20:03: [place] (PROBIOTIC Medical ORAL) Branch FOLIC ACID 2020-0 Yes Take by Univ ers ORAL 2-24 mouth. ity of 20:03: [place] [address] Medical Branch vitamin E 2020-0 Yes Take by Unive rs acetate 2-24 mouth. ity of (VITAMIN E 20:03: [facility]) Medical Branch calcium 2020-0 Yes Take by Univers carbonate/v 2-24 mouth. ity of itamin D3 20:03: [place] (VITAMIN Medical D-3 ORAL) Branch MAGNESIUM 2020-0 Yes Take by Unive rs ORAL 2-24 mouth. ity of 20:03: [place] [facility] BIOTIN ORAL 2020-0 Yes Take by Uni vers 2-24 mouth. ity of 20:03: [place] [facility] ezetimibe 2020-0 Yes 10mg Take 10 mg Un loi 10 mg 2-24 by mouth ity of tablet 20:03: daily. [place] [facility] amoxicillin 2020-0 Yes 1{tbl} Take 1 Un loi -clavulanat 2-24 tablet by ity of e 875-125 20:03: mouth 2 [place] mg per 01 (two) Medical tablet times Branch daily. Lactobacill 2019-0 Yes Take by Uni vers us 2-24 mouth. ity of acidophilus 20:03: [place] (ACIDOPHILU 01 Medical S ORAL) Branch MULTIVITAMI 2019-0 Yes Take by Uni vers N (MULTIPLE 2-24 mouth. ity of VITAMINS 19:25: [place] ORAL) Medical Branch MULTIVITAMI 2020-0 Yes Take by Uni vers N (MULTIPLE 2-24 mouth. ity of VITAMINS 19:25: [place] ORAL) Medical Branch MULTIVITAMI 2019-0 Yes Take by Uni vers N (MULTIPLE 2-24 mouth. ity of VITAMINS 19:25: [place] ORAL) Medical Branch MULTIVITAMI 2019-0 Yes Take by Uni vers N (MULTIPLE 2-24 mouth. ity of VITAMINS 19:25: [place] ORAL) Medical Branch MULTIVITAMI 2020-0 Yes Take by Uni vers N (MULTIPLE 2-24 mouth. ity of VITAMINS 19:25: [place] ORAL) 02 Medical Branch MULTIVITAMI 2020-0 Yes Take by Uni vers N (MULTIPLE 2-24 mouth. ity of VITAMINS 19:25: [place] ORAL) 02 Medical Branch MULTIVITAMI 2020-0 Yes Take by Uni vers N (MULTIPLE 2-24 mouth. ity of VITAMINS 19:25: [place] ORAL) 02 Medical Branch MULTIVITAMI 2020-0 Yes Take by Uni vers N (MULTIPLE 2-24 mouth. ity of VITAMINS 19:25: [place] ORAL) 02 Medical Branch MULTIVITAMI 2020-0 Yes Take by Uni vers N (MULTIPLE 2-24 mouth. ity of VITAMINS 19:25: [place] ORAL) 02 Medical Branch MULTIVITAMI 2020-0 Yes Take by Uni vers N (MULTIPLE 2-24 mouth. ity of VITAMINS 19:25: [place] ORAL) [facility] MULTIVITAMI 2020-0 Yes Take by Uni vers N (MULTIPLE 2-24 mouth. ity of VITAMINS 19:25: [place] ORAL) [facility] MULTIVITAMI 2020-0 Yes Take by Uni vers N (MULTIPLE 2-24 mouth. ity of VITAMINS 19:25: [place] ORAL) [facility] Zetia 10 mg 2020-0 No 1mg tablet 2-20 00:00: 00 Augmentin 2020-0 No 1mg 875 mg-125 2-20 mg tablet 00:00: 00 Zetia 10 mg 2020-0 No 1mg tablet 2-20 00:00: 00 Augmentin 2020-0 No 1mg 875 mg-125 2-20 mg tablet 00:00: 00 pravastatin 2020-0 No 1mg 20 mg 2-18 tablet 00:00: 00 pravastatin 2020-0 No 1mg 20 mg 2-18 tablet 00:00: 00 lisinopril 2020-0 No 1mg 10 mg 2-05 tablet 00:00: 00 lisinopril 2020-0 No 1mg 10 mg 2-05 tablet 00:00: 00 lisinopril 2020-0 No 1mg 10 mg 2-05 tablet 00:00: 00 lisinopril 2020-0 No 1mg 10 mg 2-05 tablet 00:00: 00 bupropion 2020-0 No 1mg HCl 100 mg 1-10 tablet 00:00: 00 lisinopril 2020-0 No 1mg 10 mg 1-10 tablet 00:00: 00 lisinopril 2020-0 No 1mg 10 mg 1-10 tablet 00:00: 00 albuterol 2020-0 No 1/3 mL sulfate 2.5 1-10 (0.083 mg/3 mL 00:00: %) (0.083 %) 00 solution for nebulizatio n Miralax 17 2020-0 No 1gram/d gram/dose 1-10 ose oral powder 00:00: 00 Symbicort 2020-0 No 2mcg/ac 160 mcg-4.5 1-10 tuation mcg/actuati 00:00: on HFA 00 aerosol inhaler Ventolin 2020-0 No 2mcg/ac HFA 90 1-10 tuation mcg/actuati 00:00: on aerosol 00 inhaler valacyclovi 2020-0 No 1mg r 500 mg 1-10 tablet 00:00: 00 bupropion 2020-0 No 1mg HCl 100 mg 1-10 tablet 00:00: 00 bupropion 2020-0 No 1mg HCl 100 mg 1-10 tablet 00:00: 00 lisinopril 2020-0 No 1mg 10 mg 1-10 tablet 00:00: 00 lisinopril 2020-0 No 1mg 10 mg 1-10 tablet 00:00: 00 albuterol 2020-0 No 1/3 mL sulfate 2.5 1-10 (0.083 mg/3 mL 00:00: %) (0.083 %) 00 solution for nebulizatio n Miralax 17 2019-0 No 1gram/d gram/dose 1-10 ose oral powder 00:00: 00 Symbicort 2020-0 No 2mcg/ac 160 mcg-4.5 1-10 tuation mcg/actuati 00:00: on HFA 00 aerosol inhaler Ventolin 2020-0 No 2mcg/ac HFA 90 1-10 tuation mcg/actuati 00:00: on aerosol 00 inhaler valacyclovi 2020-0 No 1mg r 500 mg 1-10 tablet 00:00: 00 bupropion 2020-0 No 1mg HCl 100 mg 1-10 tablet 00:00: 00 methylPREDN 2015-11 Yes 84mg Take 21 Uni vers ISolone 2-23 tablets by ity of (MEDROL, 00:00: mouth [place] TAQUERIA,) 4 mg 00 SEE-INSTRU Med ical tablets CTIONS. Branch follow package directions methylPREDN 2015-11 Yes 84mg Take 21 Uni vers ISolone 2-23 tablets by ity of (MEDROL, 00:00: mouth [place] TAQUERIA,) 4 mg 00 SEE-INSTRU Med ical tablets CTIONS. Branch follow package directions methylPREDN 2015-11 Yes 84mg Take 21 Uni vers ISolone 2-23 tablets by ity of (MEDROL, 00:00: mouth [place] TAQUERIA,) 4 mg 00 SEE-INSTRU Med ical tablets CTIONS. Branch follow package directions methylPREDN 2015-11 Yes 84mg Take 21 Uni vers ISolone 2-23 tablets by ity of (MEDROL, 00:00: mouth [place] TAQUERIA,) 4 mg 00 SEE-INSTRU Med ical tablets CTIONS. Branch follow package directions methylPREDN 2015-11 Yes 84mg Take 21 Uni vers ISolone 2-23 tablets by ity of (MEDROL, 00:00: mouth [place] TAQUERIA,) 4 mg 00 SEE-INSTRU Med ical tablets CTIONS. Branch follow package directions methylPREDN 2015-11 Yes 84mg Take 21 Uni vers ISolone 2-23 tablets by ity of (MEDROL, 00:00: mouth [place] TAQUERIA,) 4 mg 00 SEE-INSTRU Med ical tablets CTIONS. Branch follow package directions methylPREDN 2015-11 Yes 84mg Take 21 Uni vers ISolone 2-23 tablets by ity of (MEDROL, 00:00: mouth [place] TAQUERIA,) 4 mg 00 SEE-INSTRU Med ical tablets CTIONS. Branch follow package directions methylPREDN 2015-11 Yes 84mg Take 21 Uni vers ISolone 2-23 tablets by ity of (MEDROL, 00:00: mouth [place] TAQUERIA,) 4 mg 00 SEE-INSTRU Med ical tablets CTIONS. Branch follow package directions methylPREDN 2015-11 Yes 84mg Take 21 Uni vers ISolone 2-23 tablets by ity of (MEDROL, 00:00: mouth [place] TAQUERIA,) 4 mg 00 SEE-INSTRU Med ical tablets CTIONS. Branch follow package directions methylPREDN 2015-11 Yes 84mg Take 21 Uni vers ISolone 2-23 tablets by ity of (MEDROL, 00:00: mouth [place] TAQUERIA,) 4 mg 00 SEE-INSTRU Med ical tablets CTIONS. Branch follow package directions methylPREDN 2015-11 Yes 84mg Take 21 Uni vers ISolone 2-23 tablets by ity of (MEDROL, 00:00: mouth [place] TAQUERIA,) 4 mg 00 SEE-INSTRU Med ical tablets CTIONS. Branch follow package directions methylPREDN 2015-11 Yes 84mg Take 21 Uni vers ISolone 2-23 tablets by ity of (MEDROL, 00:00: mouth [place] TAQUERIA,) 4 mg 00 SEE-INSTRU Med ical tablets CTIONS. Branch follow package directions SYMBICORT 2015-11 Yes USE 2 Univers 160-4.5 2-06 INHALATION ity of mcg/actuati 00:00: S TWICE [place] on inhaler [facility] 2015-11 Yes 2 Univers 90 2-06 INHALATION ity of mcg/actuati 00:00: S EVERY 6 [place] on inhaler 00 HOURS Medic al NEEDED Branch SYMBICORT 2015-11 Yes USE 2 Univers 160-4.5 2-06 INHALATION ity of mcg/actuati 00:00: S TWICE [place] inhaler DAY [facility] 2015-11 Yes 2 Univers 90 2-06 INHALATION ity of mcg/actuati 00:00: S EVERY 6 [place] on inhaler 00 HOURS Medic al NEEDED Branch SYMBICORT 2015-11 Yes USE 2 Univers 160-4.5 2-06 INHALATION ity of mcg/actuati 00:00: S TWICE [place] inhaler DAY [facility] 2015-11 Yes 2 Univers 90 2-06 INHALATION ity of mcg/actuati 00:00: S EVERY 6 [place] on inhaler 00 HOURS Medic al NEEDED Branch SYMBICORT 2015-11 Yes USE 2 Univers 160-4.5 2-06 INHALATION ity of mcg/actuati 00:00: S TWICE [place] inhaler [facility] 2015-11 Yes 2 Univers 90 2-06 INHALATION ity of mcg/actuati 00:00: S EVERY 6 [place] on inhaler 00 HOURS Medic al NEEDED Branch SYMBICORT 2015-11 Yes USE 2 Univers 160-4.5 2-06 INHALATION ity of mcg/actuati 00:00: S TWICE [place] inhaler [facility] 2015-11 Yes 2 Univers 90 2-06 INHALATION ity of mcg/actuati 00:00: S EVERY 6 [place] on inhaler 00 HOURS Medic al NEEDED Branch SYMBICORT 2015-11 Yes USE 2 Univers 160-4.5 2-06 INHALATION ity of mcg/actuati 00:00: S TWICE [place] inhaler DAY [facility] 2015-11 Yes 2 Univers 90 2-06 INHALATION ity of mcg/actuati 00:00: S EVERY 6 [place] on inhaler 00 HOURS Medic al NEEDED Branch SYMBICORT 2015-11 Yes USE 2 Univers 160-4.5 2-06 INHALATION ity of mcg/actuati 00:00: S TWICE [place] inhaler [facility] 2015-11 Yes 2 Univers 90 2-06 INHALATION ity of mcg/actuati 00:00: S EVERY 6 [place] on inhaler 00 HOURS Medic al NEEDED Branch SYMBICORT 2015-11 Yes USE 2 Univers 160-4.5 2-06 INHALATION ity of mcg/actuati 00:00: S TWICE [place] on inhaler [facility] 2015-11 Yes 2 Univers 90 2-06 INHALATION ity of mcg/actuati 00:00: S EVERY 6 [place] on inhaler 00 HOURS Medic al NEEDED Branch SYMBICORT 2015-11 Yes USE 2 [facility] 160-4.5 2-06 INHALATION ity of mcg/actuati 00:00: S TWICE [place] inhaler [facility] 2015-11 Yes 2 Univers 90 2-06 INHALATION ity of mcg/actuati 00:00: S EVERY 6 [place] on inhaler 00 HOURS Medic al NEEDED Branch SYMBICORT 2015-11 Yes USE 2 Univers 160-4.5 2-06 INHALATION ity of mcg/actuati 00:00: S TWICE [place] inhaler [facility] 2015-11 Yes 2 Univers 90 2-06 INHALATION ity of mcg/actuati 00:00: S EVERY 6 [place] on inhaler 00 HOURS Medic al NEEDED [place] SYMBICORT 2015-11 Yes USE 2 Univers 160-4.5 2-06 INHALATION ity of mcg/actuati 00:00: S TWICE [place] inhaler [facility] 2015-11 Yes 2 Univers 90 2-06 INHALATION ity of mcg/actuati 00:00: S EVERY 6 [place] on inhaler 00 HOURS Medic al NEEDED Branch SYMBICORT 2015-11 Yes USE 2 [facility] 160-4.5 2-06 INHALATION ity of mcg/actuati 00:00: S TWICE [place] inhaler [facility] 2015-11 Yes 2 Univers 90 2-06 INHALATION ity of mcg/actuati 00:00: S EVERY 6 [place] on inhaler 00 HOURS Medic al NEEDED [place] Immunizations Ordered Immunization Filled Immunization Date Status Commen ts Source Name Name pneumococcal 2020-09-03 Completed polysacchar 00:00:00 influenza, high-dose, 2020-09-03 Completed quadrivalent 00:00:00 pneumococcal 2020-09-03 Completed polysacchar 00:00:00 influenza, high-dose, 2020-09-03 Completed quadrivalent 00:00:00 Vital Signs Vital Name Observation Time Observation Value Comments Source Systolic blood 2020-07-31 16:01:00 98 mm[Hg] Univer sity of pressure [place] [facility] Diastolic blood 2020-07-31 16:01:00 64 mm[Hg] Unive rsity of pressure [facility] Heart rate 2020-07-31 16:01:00 105 /min [facility] Body temperature 2020-07-31 16:01:00 36.39 Kim Univ [facility] Body height 2020-07-31 16:01:00 172.7 cm [facility] Body weight 2020-07-31 16:01:00 110.678 kg [facility] BMI 2020-07-31 16:01:00 37.10 kg/m2 [facility] Oxygen saturation in 2020-07-31 16:01:00 94 /min [facility] Arterial blood by [facility] Pulse oximetry Branch Systolic blood 2020-01-24 17:19:00 99 mm[Hg] [facility] Diastolic blood 2020-01-24 17:19:00 68 mm[Hg] [facility] Heart rate 2020-01-24 17:19:00 96 /min [facility] Body height 2020-01-24 17:19:00 172.7 cm [facility] Body weight 2020-01-24 17:19:00 106.595 kg [facility] BMI 2020-01-24 17:19:00 35.73 kg/m2 [facility] Oxygen saturation in 2020-01-24 17:19:00 96 /min [facility] Arterial blood by [facility] Pulse oximetry Branch Systolic blood 2020-01-13 20:02:00 118 mm[Hg] [facility] Diastolic blood 2020-01-13 20:02:00 81 mm[Hg] [facility] Heart rate 2020-01-13 20:02:00 94 /min [facility] Body height 2020-01-13 20:02:00 172.7 cm [facility] Body weight 2020-01-13 20:02:00 107.321 kg [facility] BMI 2020-01-13 20:02:00 35.97 kg/m2 [facility] Oxygen saturation in 2020-01-13 20:02:00 97 /min [facility] blood by [facility] Pulse oximetry [place] Body height 2022-09-29 20:09:00 172.7 cm [facility] Body weight 2022-09-29 20:09:00 111.131 kg [facility] BMI 2022-09-29 20:09:00 37.25 kg/m2 [facility] BP Systolic 2022-09-02 09:50:00 134 mm[Hg] BP Diastolic 2022-09-02 09:50:00 82 mm[Hg] Weight Measured 2022-09-02 09:50:00 249.40 pounds Height Measured 2022-09-02 09:50:00 68.00 inches Body Temperature 2022-09-02 09:50:00 98.20 degrees Heart Rate 2022-09-02 09:50:00 102.00 /min Respiratory Rate 2022-09-02 09:50:00 BP Systolic 2022-08-29 15:29:00 135 mm[Hg] BP Diastolic 2022-08-29 15:29:00 88 mm[Hg] Weight Measured 2022-08-29 15:29:00 252.80 pounds Height Measured 2022-08-29 15:29:00 68.00 inches Body Temperature 2022-08-29 15:29:00 98.00 degrees Heart Rate 2022-08-29 15:29:00 102.00 /min Respiratory Rate 2022-08-29 15:29:00 BP Systolic 2022-06-06 16:08:00 151 mm[Hg] BP Diastolic 2022-06-06 16:08:00 88 mm[Hg] Weight Measured 2022-06-06 16:08:00 254.00 pounds Height Measured 2022-06-06 16:08:00 68.00 inches Body Temperature 2022-06-06 16:08:00 98.30 degrees Heart Rate 2022-06-06 16:08:00 102.00 /min Respiratory Rate 2022-06-06 16:08:00 BP Systolic 2021-10-27 16:38:00 141 mm[Hg] BP Diastolic 2021-10-27 16:38:00 89 mm[Hg] Weight Measured 2021-10-27 16:38:00 249.40 pounds Height Measured 2021-10-27 16:38:00 68.00 inches Body Temperature 2021-10-27 16:38:00 97.40 degrees Heart Rate 2021-10-27 16:38:00 90.00 /min Respiratory Rate 2021-10-27 16:38:00 BP Systolic 2021-09-13 10:21:00 139 mm[Hg] BP Diastolic 2021-09-13 10:21:00 96 mm[Hg] Weight Measured 2021-09-13 10:21:00 246.20 pounds Height Measured 2021-09-13 10:21:00 68.00 inches Body Temperature 2021-09-13 10:21:00 97.30 degrees Heart Rate 2021-09-13 10:21:00 75.00 /min Respiratory Rate 2021-09-13 10:21:00 BP Systolic 2020-09-15 09:26:00 117 mm[Hg] BP Diastolic 2020-09-15 09:26:00 79 mm[Hg] Weight Measured 2020-09-15 09:26:00 248.40 pounds Height Measured 2020-09-15 09:26:00 68.00 inches Body Temperature 2020-09-15 09:26:00 97.20 degrees Heart Rate 2020-09-15 09:26:00 101.00 /min Respiratory Rate 2020-09-15 09:26:00 BP Systolic 2020-05-12 14:29:00 123 mm[Hg] BP Diastolic 2020-05-12 14:29:00 71 mm[Hg] Weight Measured 2020-05-12 14:29:00 240.00 pounds Height Measured 2020-05-12 14:29:00 68.00 inches Body Temperature 2020-05-12 14:29:00 98.30 degrees Heart Rate 2020-05-12 14:29:00 101.00 /min Respiratory Rate 2020-05-12 14:29:00 BP Systolic 2020-01-09 11:13:00 128 mm[Hg] BP Diastolic 2020-01-09 11:13:00 66 mm[Hg] Weight Measured 2020-01-09 11:13:00 239.00 pounds Height Measured 2020-01-09 11:13:00 68.00 inches Body Temperature 2020-01-09 11:13:00 98.10 degrees Heart Rate 2020-01-09 11:13:00 85.00 /min Respiratory Rate 2020-01-09 11:13:00 BP Systolic 2019-12-10 13:56:00 BP Diastolic 2019-12-10 13:56:00 Weight Measured 2019-12-10 13:56:00 239.00 pounds Height Measured 2019-12-10 13:56:00 68.00 inches Body Temperature 2019-12-10 13:56:00 97.90 degrees Heart Rate 2019-12-10 13:56:00 88.00 /min Respiratory Rate 2019-12-10 13:56:00 Procedures Procedure Date / Time Performing Clinician Source Performed MRI BRAIN W WO CONTRAST 2022-09-29 21:29:00 [place] [facility] MRI CERVICAL SPINE W WO 2022-09-29 20:50:00 [place] [facility] CONTRAST MRA HEAD WO CONTRAST 2022-09-22 18:40:25 [facility] Ekg 2020-09-15 00:00:00 AUTHORIZATION FOR 2020-01-30 05:01:00 Doctor Unassigned, No [facility] RELEASE OF [facility] ASSIGNMENT OF BENEFITS 2020-01-20 17:31:30 Doctor Unassigned, No [facility] Plan of Care Planned Activity Planned Date Details Comments Source Future Scheduled 2022-11-24 COVID-19 VACCINE (#1) [facility] Test 07:36:36 [code = COVID-19 VACCINE (#1)] Future Scheduled 2022-11-24 Hepatitis C screening [facility] Test 07:36:36 (procedure) [code = [id number]] Future Scheduled 2022-11-24 BREAST CANCER [facility] Test 07:36:36 SCREENING [code = BREAST CANCER SCREENING] Future Scheduled 2022-11-24 COLONOSCOPY SCREENING [facility] Test 07:36:36 [code = COLONOSCOPY SCREENING] Future Scheduled 2022-11-24 SHINGLES VACCINES (1 [facility] Test 07:36:36 of 2) [code = SHINGLES VACCINES (1 of 2)] Future Scheduled 2022-11-24 65+ [facility]AL [facility] 07:36:36 VACCINE (2 - PCV) [code = 65+ PNEUMOCOCCAL VACCINE (2 - PCV)] Future Scheduled 2022-11-24 INFLUENZA VACCINE [facility] Test 07:36:36 [code = INFLUENZA VACCINE] Future Scheduled 2022-11-24 COVID-19 VACCINE (#1) [facility] Test 07:36:36 [code = COVID-19 VACCINE (#1)] Future Scheduled 2022-11-24 Hepatitis C screening [facility] Test 07:36:36 (procedure) [code = [id number]] Future Scheduled 2022-11-24 BREAST CANCER [facility] Test 07:36:36 SCREENING [code = BREAST CANCER SCREENING] Future Scheduled 2022-11-24 COLONOSCOPY SCREENING [facility] Test 07:36:36 [code = COLONOSCOPY SCREENING] Future Scheduled 2022-11-24 SHINGLES VACCINES (1 [facility] Test 07:36:36 of 2) [code = SHINGLES VACCINES (1 of 2)] Future Scheduled 2022-11-24 65+ [facility]CCAL [facility] Test 07:36:36 VACCINE (2 - PCV) [code = 65+ PNEUMOCOCCAL VACCINE (2 - PCV)] Future Scheduled 2022-11-24 INFLUENZA VACCINE [facility] Test 07:36:36 [code = INFLUENZA VACCINE] Goal Plan of Care Note [code = 32211-0] Goal Plan of Care Note [code = 47297-5] Goal Plan of Care Note [code = 42932-4] Goal Plan of Care Note [code = 43146-8] Goal Plan of Care Note [code = 18490-5] Goal Plan of Care Note [code = 99070-3] Goal Plan of Care Note [code = 25460-8] Goal Plan of Care Note [code = 22021-9] Goal Plan of Care Note [code = 83980-4] Goal Plan of Care Note [code = 82690-6] Goal Plan of Care Note [code = 94600-5] Goal Plan of Care Note [code = 83209-1] Goal Plan of Care Note [code = 89861-6] Goal Plan of Care Note [code = 61443-2] Goal Plan of Care Note [code = 81945-2] Goal Plan of Care Note [code = 23014-4] Goal Plan of Care Note [code = 86597-5] Goal Plan of Care Note [code = 14943-0] Goal Plan of Care Note [code = 56371-2] Goal Plan of Care Note [code = 78658-9] Goal Plan of Care Note [code = 86896-7] Goal Plan of Care Note [code = 85958-1] Goal Plan of Care Note [code = 94406-7] Goal Plan of Care Note [code = 21119-9] Goal Plan of Care Note [code = 65665-4] Goal Plan of Care Note [code = 08184-4] Goal Plan of Care Note [code = 60877-5] Goal Plan of Care Note [code = 19443-7] Goal Plan of Care Note [code = 59308-1] Goal Plan of Care Note [code = 57012-1] Goal Plan of Care Note [code = 26199-1] Goal Plan of Care Note [code = 91385-7] Goal Plan of Care Note [code = 04707-1] Goal Plan of Care Note [code = 58035-4] Goal Plan of Care Note [code = 73279-7] Goal Plan of Care Note [code = 13732-6] Goal Plan of Care Note [code = 63693-7] Goal Plan of Care Note [code = 53651-7] Goal Plan of Care Note [code = 39827-7] Goal Plan of Care Note [code = 83790-0] Goal Plan of Care Note [code = 43394-9] Goal Plan of Care Note [code = 16568-6] Goal Plan of Care Note [code = 95198-4] Goal Plan of Care Note [code = 53492-0] Goal Plan of Care Note [code = 78986-1] Goal Plan of Care Note [code = 65486-0] Encounters Start End Encounter Admission Attending Care Care Encounter Source Date/Time Date/Time Type Type Clinicians Facility Department ID 2022-12-12 2022-12-12 Outpatient [facility] [id number] [place] 16:42:25 16:42:[address] 2022-09-29 2022-09-29 Outpatient FORD, [facility] [id number] 00:00:00 00:00:00 MANE 352 Method i 2022-09-29 2022-09-29 Outpatient FORD, [facility] [id number] 00:00:00 00:00:00 MANE 156 Method i 2022-09-22 2022-09-22 Outpatient FORD, [facility] [id number] 00:00:00 00:00:00 MANE 899 Method i 2022-09-02 2022-09-02 Outpatient SFA SFA [id number] [place] 09:44:48 09:44:[address] 2022-08-29 2022-08-29 Outpatient SFA SFA [id number] [place] 15:24:00 15:24:[address] 2022-08-29 2022-08-29 Outpatient [id number] 00:00:00 00:00:00 Visit [id number] -65f1-3e8 [id number] 6e17dd 2022-06-06 2022-06-06 Outpatient [id number] 00:00:00 00:00:00 Visit [id number] [id number] -[id number] [id number] [id number] dd8a02 2020-07-31 2020-07-31 [facility] [id number] Univers 10:56:44 11:38:28 Visit Maricruz Ponce [facility] [id number] ity of [place] 4.2.7.2.686 [facility] Yu [phone] [address] Office Building 2020-07-31 2020-07-31 Outpatient Sofia MOLINA [facility] [id number] Univers 11:00:00 11:00:00 MARICRUZ gaitan o f [facility] 2020-01-30 2020-01-30 Orders Doctor THOMSON 1.2.840.114 [id number] Univers 00:00:00 00:00:00 Only Unassigned, JB 350.1.13.10 ity of [facility] 4.2.7.2.686 Jg as [phone] [address] 2020-01-24 2020-01-24 Office Jesse Maricruz Ponce [facility] 1.2.840. 114 [id number] Univers 11:03:49 11:23:49 Visit Livan Dobbs [facility] [id number] [place] [phone] [address] Office Building 2020-01-24 2020-01-24 Outpatient R RINKU [facility] [id number] Univers 11:20:00 11:20:00 LIVAN gaitan [facility] 2020-01-20 2020-01-20 [facility] [id number] Univers 13:00:00 13:00:00 MARICRUZ gaitan o f [facility] 2020-01-20 2020-01-20 Plate Finisher Lio, Adc Lab Main [facility] 1.2.8 40.114 [id number] Univers 11:25:36 11:40:36 Visit Maricruz Molina [id number] it[place] [phone] [address] 2020-01-20 2020-01-20 Orders Doctor ALIX 1.2.840.114 [id number] Univers 00:00:00 00:00:00 Only Unassigned, JB 350.1.13.10 ity of [place] [facility] 4.2.7.2.686 Jg as [phone] [address] 2020-01-15 2020-01-15 Plate Finisher Lio, Adc Lab Main [facility] 1.2.8 40.114 [id number] Univers 07:53:41 08:08:41 Visit Maricruz Molina [place] [id number] ity [place] [phone] [address] 2020-01-15 2020-01-15 Outpatient R JESSE [facility] [id number] Univers 08:00:00 08:00:00 MORGAN ity o f [facility] 2020-01-15 2020-01-15 Telephone Jesse [facility] [id number] Univers 00:00:00 00:00:00 Maricruz Ponce [facility] [id number] [place] [phone] [address] Office [facility] 2020-01-13 2020-01-13 Plate Finisher Draw, Clc-Bls Lab [facility] 1.2.8 40.114 [id number] Univers 13:53:04 14:08:04 Visit Maricruz Molina [facility] [id number] [place] [phone] [address] [facility] 2020-01-13 2020-01-13 Office Jesse [facility] 1.2.840.114 [id number] Univers 12:54:31 13:24:31 Visit Maricruz [facility] [id number] [place] [phone] [address] Office Building 2020-01-13 2020-01-13 Outpatient R JESSE [facility] [id number] Univers 13:00:00 13:00:00 MORGAN ity o f [facility] Results Test Description Test Time Test Comments Results Result Comments Source HEMOGLOBIN A1c 2022-09-03 04:53:00 Test Item Value Reference Range Interpretation Comme nts HEMOGLOBIN A1c (test code = 5.5 % 4.2-5.6 UNLESS OTHERWISE INDICATED, ALL 09713) TESTING PERFORM ED ATCLINICAL PATHOLOGY LABOR [facility] [address] [place] [id number] DIRECTOR BUSINESS TRAVEL: LEONA INIGUEZ M.D. CLIA NUMBER [id number] CAP ACCREDITATION N O. [id number] CBC W/AUTO DIFF WITH [id number] 04:12:06 Test Item Value Reference Range Interpretation Comments WBC (test code = 4.6 K/UL 3.5-11.0 1001) RBC (test code = 4.61 M/UL 3.80-5.40 1002) HEMOGLOBIN (test code 14.1 G/DL 11.5-15.5 = 1003) HEMATOCRIT (test code 41.8 % 34.0-45.0 = 1004) MCV (test code = 90.7 fL 80.0-99.0 1005) MCH (test code = 30.6 PG 25.0-33.0 1006) MCHC (test code = 33.7 G/DL 31.0-36.0 1007) RDW (test code = 12.7 % 11.5-15.0 1038) NEUTROPHILS (test 53.9 % code = 1008) LYMPHOCYTES (test 33.2 % code = 1010) MONOCYTES (test code 6.0 % = 1011) EOSINOPHILS (test 5.4 % code = 1012) BASOPHILS (test code 1.3 % = 1013) IMMATURE GRANULOCYTES 0.2 % (test code = 1036) NUCLEATED RBCS (test 0.0 /100 WBC'S See_Comment [Aut omated code = 1065) message] The sy stem which generated this result transmitted reference range : 0.0. The refere nce range was not u sed to interpret th is result as normal/abnormal . PLATELET COUNT (test 259 K/UL 130-400 code = 1015) ABSOLUTE NEUTROPHILS 2.50 K/UL 1.50-7.50 (test code = 1066) ABSOLUTE LYMPHOCYTES 1.54 K/UL 1.00-4.00 (test code = 1067) ABSOLUTE MONOCYTES 0.28 K/UL 0.20-1.00 (test code = 1068) ABSOLUTE EOSINOPHILS 0.25 K/UL 0.00-0.50 (test code = 1040) ABSOLUTE BASOPHILS 0.06 K/UL 0.00-0.20 (test code = 1069) ABS IMMATURE 0.01 K/UL 0.00-0.10 GRANULOCYTES (test code = 1020) ABS NUCLEATED RBCS 0.00 K/UL 0.00-0.11 (test code = 62343) LIPID [id number] 04:04:29 Test Item Value Reference Range Interpretation Comments CHOLESTEROL (test 229 MG/DL <200 H code = 2210) TRIGLYCERIDES (test 77 MG/DL <150 code = 2232) HDL CHOLESTEROL (test 85 MG/DL >39 code = 2220) CALC LDL CHOL (test 127 MG/DL <100 H NOTE: C ALCULATED LDL code = 2237) IS BASED ON SONJA-GAMEZ METHOD WHICHINCLUDES ADJUSTABLE TRIGLYCERIDE:VL DL CHOLESTEROL RAT IO.THIS FACTOR VARIES B Y MEASURED TRIGLY CERIDE AND NON-HDLCHOL ESTEROL CONCENTRATIONS WITH INCREASED CALCU LATED LDL SEENIN HIGH ER TRIGLYCERIDE OR LOWER NON-HDL SPECIME NS. FOR MOREINFORMATION , SEE CLIENT ANNOUNCE MENT AT [email or web address] [email or web address] RATIO LDL/HDL 1.49 RATIO <3.22 (test code = 2238) CBC W/AUTO DIFF WITH PLATELETS [ADDED]2022-09-03 00:00:00 Test Item Value Reference Range Interpretation Comments WBC (test code = 1001) 4.6 K/UL RBC (test code = 1002) 4.61 M/UL HEMOGLOBIN (test code = 1003) 14.1 G/DL HEMATOCRIT (test code = 1004) 41.8 % MCV (test code = 1005) 90.7 fL MCH (test code = 1006) 30.6 PG MCHC (test code = 1007) 33.7 G/DL RDW (test code = 1038) 12.7 % NEUTROPHILS (test code = 1008) 53.9 % LYMPHOCYTES (test code = 1010) 33.2 % MONOCYTES (test code = 1011) 6.0 % EOSINOPHILS (test code = 1012) 5.4 % BASOPHILS (test code = 1013) 1.3 % IMMATURE GRANULOCYTES (test 0.2 % code = 1036) NUCLEATED RBCS (test code = 0.0 /100WBC'S 1065) PLATELET COUNT (test code = 259 K/UL 1015) ABSOLUTE NEUTROPHILS (test code 2.50 K/UL = 1066) ABSOLUTE LYMPHOCYTES (test code 1.54 K/UL = 1067) ABSOLUTE MONOCYTES (test code = 0.28 K/UL 1068) ABSOLUTE EOSINOPHILS (test code 0.25 K/UL = 1040) ABSOLUTE BASOPHILS (test code = 0.06 K/UL 1069) ABS IMMATURE GRANULOCYTES (test 0.01 K/UL code = 1020) ABS NUCLEATED RBCS (test code = 0.00 K/UL 74708) CBC W/AUTO DIFF WITH PLATELETS [ADDED]2022-09-03 00:00:00 Test Item Value Reference Range Interpretation Comments WBC (test code = 1001) 4.6 K/UL RBC (test code = 1002) 4.61 M/UL HEMOGLOBIN (test code = 1003) 14.1 G/DL HEMATOCRIT (test code = 1004) 41.8 % MCV (test code = 1005) 90.7 fL MCH (test code = 1006) 30.6 PG MCHC (test code = 1007) 33.7 G/DL RDW (test code = 1038) 12.7 % NEUTROPHILS (test code = 1008) 53.9 % LYMPHOCYTES (test code = 1010) 33.2 % MONOCYTES (test code = 1011) 6.0 % EOSINOPHILS (test code = 1012) 5.4 % BASOPHILS (test code = 1013) 1.3 % IMMATURE GRANULOCYTES (test 0.2 % code = 1036) NUCLEATED RBCS (test code = 0.0 /100WBC'S 1065) PLATELET COUNT (test code = 259 K/UL 1015) ABSOLUTE NEUTROPHILS (test code 2.50 K/UL = 1066) ABSOLUTE LYMPHOCYTES (test code 1.54 K/UL = 1067) ABSOLUTE MONOCYTES (test code = 0.28 K/UL 1068) ABSOLUTE EOSINOPHILS (test code 0.25 K/UL = 1040) ABSOLUTE BASOPHILS (test code = 0.06 K/UL 1069) ABS IMMATURE GRANULOCYTES (test 0.01 K/UL code = 1020) ABS NUCLEATED RBCS (test code = 0.00 K/UL 39257) CBC W/AUTO DIFF WITH PLATELETS [ADDED]2022-09-03 00:00:00 Test Item Value Reference Range Interpretation Comments WBC (test code = 1001) 4.6 K/UL RBC (test code = 1002) 4.61 M/UL HEMOGLOBIN (test code = 1003) 14.1 G/DL HEMATOCRIT (test code = 1004) 41.8 % MCV (test code = 1005) 90.7 fL MCH (test code = 1006) 30.6 PG MCHC (test code = 1007) 33.7 G/DL RDW (test code = 1038) 12.7 % NEUTROPHILS (test code = 1008) 53.9 % LYMPHOCYTES (test code = 1010) 33.2 % MONOCYTES (test code = 1011) 6.0 % EOSINOPHILS (test code = 1012) 5.4 % BASOPHILS (test code = 1013) 1.3 % IMMATURE GRANULOCYTES (test 0.2 % code = 1036) NUCLEATED RBCS (test code = 0.0 /100WBC'S 1065) PLATELET COUNT (test code = 259 K/UL 1015) ABSOLUTE NEUTROPHILS (test code 2.50 K/UL = 1066) ABSOLUTE LYMPHOCYTES (test code 1.54 K/UL = 1067) ABSOLUTE MONOCYTES (test code = 0.28 K/UL 1068) ABSOLUTE EOSINOPHILS (test code 0.25 K/UL = 1040) ABSOLUTE BASOPHILS (test code = 0.06 K/UL 1069) ABS IMMATURE GRANULOCYTES (test 0.01 K/UL code = 1020) ABS NUCLEATED RBCS (test code = 0.00 K/UL 56516) LIPID PANEL [ADDED]2022-09-03 00:00:00 Test Item Value Reference Range Interpretation Comments CHOLESTEROL (test code = 2210) 229 MG/DL TRIGLYCERIDES (test code = 2232) 77 MG/DL HDL CHOLESTEROL (test code = 2220) 85 MG/DL CALC LDL CHOL (test code = 2237) 127 MG/DL RISK RATIO LDL/HDL (test code = 1.49 RATIO 2238) LIPID PANEL [ADDED]2022-09-03 00:00:00 Test Item Value Reference Range Interpretation Comments CHOLESTEROL (test code = 2210) 229 MG/DL TRIGLYCERIDES (test code = 2232) 77 MG/DL HDL CHOLESTEROL (test code = 2220) 85 MG/DL CALC LDL CHOL (test code = 2237) 127 MG/DL RISK RATIO LDL/HDL (test code = 1.49 RATIO 2238) HEMOGLOBIN A1c [ADDED]2022-09-03 00:00:00 Test Item Value Reference Range Interpretation Comments HEMOGLOBIN A1c (test code = 71822) 5.5 % HEMOGLOBIN A1c [ADDED]2022-09-03 00:00:00 Test Item Value Reference Range Interpretation Comments HEMOGLOBIN A1c (test code = 29461) 5.5 % HEMOGLOBIN A1c [ADDED]2022-09-03 00:00:00 Test Item Value Reference Range Interpretation Comments HEMOGLOBIN A1c (test code = 05448) 5.5 % CBC W/AUTO DIFF WITH PLATELETS [ADDED]2022-09-03 00:00:00 Test Item Value Reference Range Interpretation Comments WBC (test code = 1001) 4.6 K/UL RBC (test code = 1002) 4.61 M/UL HEMOGLOBIN (test code = 1003) 14.1 G/DL HEMATOCRIT (test code = 1004) 41.8 % MCV (test code = 1005) 90.7 fL MCH (test code = 1006) 30.6 PG MCHC (test code = 1007) 33.7 G/DL RDW (test code = 1038) 12.7 % NEUTROPHILS (test code = 1008) 53.9 % LYMPHOCYTES (test code = 1010) 33.2 % MONOCYTES (test code = 1011) 6.0 % EOSINOPHILS (test code = 1012) 5.4 % BASOPHILS (test code = 1013) 1.3 % IMMATURE GRANULOCYTES (test 0.2 % code = 1036) NUCLEATED RBCS (test code = 0.0 /100WBC'S 1065) PLATELET COUNT (test code = 259 K/UL 1015) ABSOLUTE NEUTROPHILS (test code 2.50 K/UL = 1066) ABSOLUTE LYMPHOCYTES (test code 1.54 K/UL = 1067) ABSOLUTE MONOCYTES (test code = 0.28 K/UL 1068) ABSOLUTE EOSINOPHILS (test code 0.25 K/UL = 1040) ABSOLUTE BASOPHILS (test code = 0.06 K/UL 1069) ABS IMMATURE GRANULOCYTES (test 0.01 K/UL code = 1020) ABS NUCLEATED RBCS (test code = 0.00 K/UL 57518) CBC W/AUTO DIFF WITH PLATELETS [ADDED]2022-09-03 00:00:00 Test Item Value Reference Range Interpretation Comments WBC (test code = 1001) 4.6 K/UL RBC (test code = 1002) 4.61 M/UL HEMOGLOBIN (test code = 1003) 14.1 G/DL HEMATOCRIT (test code = 1004) 41.8 % MCV (test code = 1005) 90.7 fL MCH (test code = 1006) 30.6 PG MCHC (test code = 1007) 33.7 G/DL RDW (test code = 1038) 12.7 % NEUTROPHILS (test code = 1008) 53.9 % LYMPHOCYTES (test code = 1010) 33.2 % MONOCYTES (test code = 1011) 6.0 % EOSINOPHILS (test code = 1012) 5.4 % BASOPHILS (test code = 1013) 1.3 % IMMATURE GRANULOCYTES (test 0.2 % code = 1036) NUCLEATED RBCS (test code = 0.0 /100WBC'S 1065) PLATELET COUNT (test code = 259 K/UL 1015) ABSOLUTE NEUTROPHILS (test code 2.50 K/UL = 1066) ABSOLUTE LYMPHOCYTES (test code 1.54 K/UL = 1067) ABSOLUTE MONOCYTES (test code = 0.28 K/UL 1068) ABSOLUTE EOSINOPHILS (test code 0.25 K/UL = 1040) ABSOLUTE BASOPHILS (test code = 0.06 K/UL 1069) ABS IMMATURE GRANULOCYTES (test 0.01 K/UL code = 1020) ABS NUCLEATED RBCS (test code = 0.00 K/UL [id number]) CBC W/AUTO DIFF WITH PLATELETS [ADDED]2022-09-03 00:00:00 Test Item Value Reference Range Interpretation Comments WBC (test code = 1001) 4.6 K/UL RBC (test code = 1002) 4.61 M/UL HEMOGLOBIN (test code = 1003) 14.1 G/DL HEMATOCRIT (test code = 1004) 41.8 % MCV (test code = 1005) 90.7 fL MCH (test code = 1006) 30.6 PG MCHC (test code = 1007) 33.7 G/DL RDW (test code = 1038) 12.7 % NEUTROPHILS (test code = 1008) 53.9 % LYMPHOCYTES (test code = 1010) 33.2 % MONOCYTES (test code = 1011) 6.0 % EOSINOPHILS (test code = 1012) 5.4 % BASOPHILS (test code = 1013) 1.3 % IMMATURE GRANULOCYTES (test 0.2 % code = 1036) NUCLEATED RBCS (test code = 0.0 /100WBC'S 1065) PLATELET COUNT (test code = 259 K/UL 1015) ABSOLUTE NEUTROPHILS (test code 2.50 K/UL = 1066) ABSOLUTE LYMPHOCYTES (test code 1.54 K/UL = 1067) ABSOLUTE MONOCYTES (test code = 0.28 K/UL 1068) ABSOLUTE EOSINOPHILS (test code 0.25 K/UL = 1040) ABSOLUTE BASOPHILS (test code = 0.06 K/UL 1069) ABS IMMATURE GRANULOCYTES (test 0.01 K/UL code = 1020) ABS NUCLEATED RBCS (test code = 0.00 K/UL 78037) LIPID PANEL [ADDED]2022-09-03 00:00:00 Test Item Value Reference Range Interpretation Comments CHOLESTEROL (test code = 2210) 229 MG/DL TRIGLYCERIDES (test code = 2232) 77 MG/DL HDL CHOLESTEROL (test code = 2220) 85 MG/DL CALC LDL CHOL (test code = 2237) 127 MG/DL RISK RATIO LDL/HDL (test code = 1.49 RATIO 2238) LIPID PANEL [ADDED]2022-09-03 00:00:00 Test Item Value Reference Range Interpretation Comments CHOLESTEROL (test code = 2210) 229 MG/DL TRIGLYCERIDES (test code = 2232) 77 MG/DL HDL CHOLESTEROL (test code = 2220) 85 MG/DL CALC LDL CHOL (test code = 2237) 127 MG/DL RISK RATIO LDL/HDL (test code = 1.49 RATIO 2238) HEMOGLOBIN A1c [ADDED]2022-09-03 00:00:00 Test Item Value Reference Range Interpretation Comments HEMOGLOBIN A1c (test code = 33369) 5.5 % HEMOGLOBIN A1c [ADDED]2022-09-03 00:00:00 Test Item Value Reference Range Interpretation Comments HEMOGLOBIN A1c (test code = 87399) 5.5 % HEMOGLOBIN A1c [ADDED]2022-09-03 00:00:00 Test Item Value Reference Range Interpretation Comments HEMOGLOBIN A1c (test code = 52001) 5.5 % HEMOGLOBIN [id number] 06:16:24 Test Item Value Reference Range Interpretation Comments HEMOGLOBIN A1c (test code = 84615) 5.4 % 4.2-5.6 LIPID [id number] 05:05:13 Test Item Value Reference Range Interpretation Comments CHOLESTEROL (test 239 MG/DL <200 H code = 2210) TRIGLYCERIDES (test 81 MG/DL <150 code = 2232) HDL CHOLESTEROL (test 81 MG/DL >39 code = 2220) CALC LDL CHOL (test 140 MG/DL <100 H NOTE: C ALCULATED LDL code = 2237) IS BASED ON SONJA-GAMEZ METHOD WHICHINCLUDES ADJUSTABLE TRIGLYCERIDE:VL DL CHOLESTEROL RAT IO.THIS FACTOR VARIES B Y MEASURED TRIGLY CERIDE AND NON-HDLCHOL ESTEROL CONCENTRATIONS WITH INCREASED CALCU LATED LDL SEENIN HIGH ER TRIGLYCERIDE OR LOWER NON-HDL SPECIME NS. FOR MOREINFORMATION , SEE CLIENT ANNOUNCE MENT AT [email or web address] RISK RATIO LDL/HDL 1.73 RATIO <3.22 (test code = 2238) COMPREHENSIVE METABOLIC [id number] 05:05:13 Test Item Value Reference Range Interpretation Comments GLUCOSE (test code = 93 MG/DL 70-99 2216) BUN (test code = 11 MG/DL 8-23 2207) CREATININE (test 0.94 MG/DL 0.60-1.30 code = 2214) eGFR (2020 CKD-EPI) 66 ML/MIN/1.73 >60 (test code = 10958) CALC BUN/CREAT (test 12 RATIO 6-28 code = 2235) SODIUM (test code = 142 MEQ/L 238-788 3792) POTASSIUM (test code 4.9 MEQ/L 3.5-5.4 = 2227) CHLORIDE (test code 105 MEQ/L 95-107 = 2214) CARBON DIOXIDE (test 30 MEQ/L 19-31 code = 2206) CALCIUM (test code = 9.4 MG/DL 8.5-10.5 2208) PROTEIN, TOTAL (test 6.4 G/DL 6.1-8.3 code = 222) ALBUMIN (test code = 3.9 G/DL 3.5-5.2 2200) CALC GLOBULIN (test 2.5 G/DL 1.9-3.7 code = 2240) CALC A/G RATIO (test 1.6 RATIO 1.0-2.6 code = 2234) BILIRUBIN, TOTAL 0.3 MG/DL See_Comment [Automated message] (test code = 2207) The syste [employer] which generated this result transmit melina reference range : <=1.2. The refe rence range was not u sed to interpret th is result as normal/abnormal . ALKALINE PHOSPHATASE 81 U/L 40-142 (test code = 2204) AST (test code = 16 U/L 9-40 2217) ALT (test code = 15 U/L 5-40 2218) HEPATIC FUNCTION [id number] 05:05:13 Test Item Value Reference Range Interpretation Comments PROTEIN, TOTAL (test 6.4 G/DL 6.1-8.3 code = 2229) ALBUMIN (test code = 3.9 G/DL 3.5-5.2 2200) BILIRUBIN, TOTAL (test 0.3 MG/DL See_Comment [Aut omated message] code = 2207) The system [employer] generated this result transmitted ref erence range: <=1.2. T he reference range was not used to int erpret this result as normal/abnormal . BILIRUBIN, DIRECT 0.1 MG/DL 0.0-0.3 (test code = 2021) ALKALINE PHOSPHATASE 81 U/L 40-142 (test code = 2204) AST (test code = 2218) 16 U/L 9-40 ALT (test code = 2219) 15 U/L 5-40 VITAMIN D, 25 [id number] 04:37:14 Test Item Value Reference Range Interpretation Comments VITAMIN D, 25 OH 48 NG/ML SEE BELOW NOTE: 25-H YDROXYVITAMIN D (test code = 4958) ASSAY INC LUDES 25-HYDROXYVITAM IN D2 AND D3. METHODOLOGY IS CHEMILUMINESCEN T IMMUNOASSAY. INTERPRETIVE RA NGES PEDIATRIC (<17 YEARS) . . . . . . . . . . . NG/ML 20-100ADULT: IN SUFFICIENT . . . . . . . . . . . . . . NG/ML <20 SUBOP TIMAL . . . . . . . . . . . . . . . NG/ML 20-29 OPT IMAL . . . . . . . . . . . . . . . . . NG/ML 30-100 UN LESS OTHERWISE INDIC ATED, ALL TESTING PERFORM ED ATCLINICAL PATH [facility], [place] [address] LABORATORY DIRE CTOR: Miguel NEWTON. CLIA NUMBER [id number] CAP ACCREDITATION N O. [id number] HEMOGLOBIN A1c [ADDED]2022-06-08 00:00:00 Test Item Value Reference Range Interpretation Comments HEMOGLOBIN A1c (test code = 94868) 5.4 % HEMOGLOBIN A1c [ADDED]2022-06-08 00:00:00 Test Item Value Reference Range Interpretation Comments HEMOGLOBIN A1c (test code = 64004) 5.4 % LIPID PANEL [ADDED]2022-06-08 00:00:00 Test Item Value Reference Range Interpretation Comments CHOLESTEROL (test code = 2210) 239 MG/DL TRIGLYCERIDES (test code = 2232) 81 MG/DL HDL CHOLESTEROL (test code = 2220) 81 MG/DL CALC LDL CHOL (test code = 2237) 140 MG/DL RISK RATIO LDL/HDL (test code = 1.73 RATIO 2238) LIPID PANEL [ADDED]2022-06-08 00:00:00 Test Item Value Reference Range Interpretation Comments CHOLESTEROL (test code = 2210) 239 MG/DL TRIGLYCERIDES (test code = 2232) 81 MG/DL HDL CHOLESTEROL (test code = 2220) 81 MG/DL CALC LDL CHOL (test code = 2237) 140 MG/DL RISK RATIO LDL/HDL (test code = 1.73 RATIO 2238) COMPREHENSIVE METABOLIC PANEL [ADDED]2022-06-08 00:00:00 Test Item Value Reference Range Interpretation Comments GLUCOSE (test code = 2217) 93 MG/DL BUN (test code = 2208) 11 MG/DL CREATININE (test code = 2214) 0.94 MG/DL eGFR (2020 CKD-EPI) (test code 66 ML/MIN/1.73 = 75872) CALC BUN/CREAT (test code = 12 RATIO 2235) SODIUM (test code = 2231) 142 MEQ/L POTASSIUM (test code = 2228) 4.9 MEQ/L CHLORIDE (test code = 2215) 105 MEQ/L CARBON DIOXIDE (test code = 30 MEQ/L 2205) CALCIUM (test code = 2209) 9.4 MG/DL PROTEIN, TOTAL (test code = 6.4 G/DL 2228) ALBUMIN (test code = 2201) 3.9 G/DL CALC GLOBULIN (test code = 2.5 G/DL 2240) CALC A/G RATIO (test code = 1.6 RATIO 2234) BILIRUBIN, TOTAL (test code = 0.3 MG/DL 2206) ALKALINE PHOSPHATASE (test 81 U/L code = 2204) AST (test code = 2218) 16 U/L ALT (test code = 2219) 15 U/L COMPREHENSIVE METABOLIC PANEL [ADDED]2022-06-08 00:00:00 Test Item Value Reference Range Interpretation Comments GLUCOSE (test code = 2217) 93 MG/DL BUN (test code = 2208) 11 MG/DL CREATININE (test code = 2214) 0.94 MG/DL eGFR (2020 CKD-EPI) (test code 66 ML/MIN/1.73 = 70109) CALC BUN/CREAT (test code = 12 RATIO 2235) SODIUM (test code = 2231) 142 MEQ/L POTASSIUM (test code = 2228) 4.9 MEQ/L CHLORIDE (test code = 2215) 105 MEQ/L CARBON DIOXIDE (test code = 30 MEQ/L 2205) CALCIUM (test code = 2209) 9.4 MG/DL PROTEIN, TOTAL (test code = 6.4 G/DL 2228) ALBUMIN (test code = 2201) 3.9 G/DL CALC GLOBULIN (test code = 2.5 G/DL 2239) CALC A/G RATIO (test code = 1.6 RATIO 2233) BILIRUBIN, TOTAL (test code = 0.3 MG/DL 2206) ALKALINE PHOSPHATASE (test 81 U/L code = 2204) AST (test code = 2218) 16 U/L ALT (test code = 2219) 15 U/L HEPATIC FUNCTION PANEL [ADDED]2022-06-08 00:00:00 Test Item Value Reference Range Interpretation Comments PROTEIN, TOTAL (test code = 2229) 6.4 G/DL ALBUMIN (test code = 2201) 3.9 G/DL BILIRUBIN, TOTAL (test code = 2207) 0.3 MG/DL BILIRUBIN, DIRECT (test code = 0.1 MG/DL 2021) ALKALINE PHOSPHATASE (test code = 81 U/L 2203) AST (test code = 2218) 16 U/L ALT (test code = 2219) 15 U/L HEPATIC FUNCTION PANEL [ADDED]2022-06-08 00:00:00 Test Item Value Reference Range Interpretation Comments PROTEIN, TOTAL (test code = 2229) 6.4 G/DL ALBUMIN (test code = 2201) 3.9 G/DL BILIRUBIN, TOTAL (test code = 2207) 0.3 MG/DL BILIRUBIN, DIRECT (test code = 0.1 MG/DL 2021) ALKALINE PHOSPHATASE (test code = 81 U/L 2203) AST (test code = 2218) 16 U/L ALT (test code = 2219) 15 U/L VITAMIN D, 25 OH [ADDED]2022-06-08 00:00:00 Test Item Value Reference Range Interpretation Comments VITAMIN D, 25 OH (test code = 4958) 48 NG/ML VITAMIN D, 25 OH [ADDED]2022-06-08 00:00:00 Test Item Value Reference Range Interpretation Comments VITAMIN D, 25 OH (test code = 4958) 48 NG/ML HEMOGLOBIN A1c [ADDED]2022-06-08 00:00:00 Test Item Value Reference Range Interpretation Comments HEMOGLOBIN A1c (test code = 51964) 5.4 % HEMOGLOBIN A1c [ADDED]2022-06-08 00:00:00 Test Item Value Reference Range Interpretation Comments HEMOGLOBIN A1c (test code = 58358) 5.4 % HEMOGLOBIN A1c [ADDED]2022-06-08 00:00:00 Test Item Value Reference Range Interpretation Comments HEMOGLOBIN A1c (test code = 92818) 5.4 % LIPID PANEL [ADDED]2022-06-08 00:00:00 Test Item Value Reference Range Interpretation Comments CHOLESTEROL (test code = 2210) 239 MG/DL TRIGLYCERIDES (test code = 2232) 81 MG/DL HDL CHOLESTEROL (test code = 2220) 81 MG/DL CALC LDL CHOL (test code = 2237) 140 MG/DL RISK RATIO LDL/HDL (test code = 1.73 RATIO 2238) LIPID PANEL [ADDED]2022-06-08 00:00:00 Test Item Value Reference Range Interpretation Comments CHOLESTEROL (test code = 2210) 239 MG/DL TRIGLYCERIDES (test code = 2232) 81 MG/DL HDL CHOLESTEROL (test code = 2220) 81 MG/DL CALC LDL CHOL (test code = 2237) 140 MG/DL RISK RATIO LDL/HDL (test code = 1.73 RATIO 2238) COMPREHENSIVE METABOLIC PANEL [ADDED]2022-06-08 00:00:00 Test Item Value Reference Range Interpretation Comments GLUCOSE (test code = 2217) 93 MG/DL BUN (test code = 2208) 11 MG/DL CREATININE (test code = 2214) 0.94 MG/DL eGFR (2020 CKD-EPI) (test code 66 ML/MIN/1.73 = 18219) CALC BUN/CREAT (test code = 12 RATIO 2235) SODIUM (test code = 2231) 142 MEQ/L POTASSIUM (test code = 2228) 4.9 MEQ/L CHLORIDE (test code = 2215) 105 MEQ/L CARBON DIOXIDE (test code = 30 MEQ/L 2205) CALCIUM (test code = 2209) 9.4 MG/DL PROTEIN, TOTAL (test code = 6.4 G/DL 2228) ALBUMIN (test code = 220) 3.9 G/DL CALC GLOBULIN (test code = 2.5 G/DL 2239) CALC A/G RATIO (test code = 1.6 RATIO 2234) BILIRUBIN, TOTAL (test code = 0.3 MG/DL 2206) ALKALINE PHOSPHATASE (test 81 U/L code = 2204) AST (test code = 2218) 16 U/L ALT (test code = 2219) 15 U/L COMPREHENSIVE METABOLIC PANEL [ADDED]2022-06-08 00:00:00 Test Item Value Reference Range Interpretation Comments GLUCOSE (test code = 2217) 93 MG/DL BUN (test code = 2208) 11 MG/DL CREATININE (test code = 2214) 0.94 MG/DL eGFR (2020 CKD-EPI) (test code 66 ML/MIN/1.73 = 78242) CALC BUN/CREAT (test code = 12 RATIO 2235) SODIUM (test code = 2231) 142 MEQ/L POTASSIUM (test code = 2228) 4.9 MEQ/L CHLORIDE (test code = 2215) 105 MEQ/L CARBON DIOXIDE (test code = 30 MEQ/L 2205) CALCIUM (test code = 2209) 9.4 MG/DL PROTEIN, TOTAL (test code = 6.4 G/DL 2228) ALBUMIN (test code = 2201) 3.9 G/DL CALC GLOBULIN (test code = 2.5 G/DL 2239) CALC A/G RATIO (test code = 1.6 RATIO 223) BILIRUBIN, TOTAL (test code = 0.3 MG/DL 2206) ALKALINE PHOSPHATASE (test 81 U/L code = 2204) AST (test code = 2218) 16 U/L ALT (test code = 2219) 15 U/L HEPATIC FUNCTION PANEL [ADDED]2022-06-08 00:00:00 Test Item Value Reference Range Interpretation Comments PROTEIN, TOTAL (test code = 2229) 6.4 G/DL ALBUMIN (test code = 2201) 3.9 G/DL BILIRUBIN, TOTAL (test code = 2207) 0.3 MG/DL BILIRUBIN, DIRECT (test code = 0.1 MG/DL 2021) ALKALINE PHOSPHATASE (test code = 81 U/L 2203) AST (test code = 2218) 16 U/L ALT (test code = 2219) 15 U/L HEPATIC FUNCTION PANEL [ADDED]2022-06-08 00:00:00 Test Item Value Reference Range Interpretation Comments PROTEIN, TOTAL (test code = 2229) 6.4 G/DL ALBUMIN (test code = 2201) 3.9 G/DL BILIRUBIN, TOTAL (test code = 2206) 0.3 MG/DL BILIRUBIN, DIRECT (test code = 0.1 MG/DL 2021) ALKALINE PHOSPHATASE (test code = 81 U/L 2203) AST (test code = 2218) 16 U/L ALT (test code = 2219) 15 U/L VITAMIN D, 25 OH [ADDED]2022-06-08 00:00:00 Test Item Value Reference Range Interpretation Comments VITAMIN D, 25 OH (test code = 4958) 48 NG/ML VITAMIN D, 25 OH [ADDED]2022-06-08 00:00:00 Test Item Value Reference Range Interpretation Comments VITAMIN D, 25 OH (test code = 4958) 48 NG/ML HEMOGLOBIN A1c [ADDED]2022-06-08 00:00:00 Test Item Value Reference Range Interpretation Comments HEMOGLOBIN A1c (test code = 30818) 5.4 % SARS-CoV-2 (COVID-19), RT-PCR/[id number] 10:57:09 Test Item Value Reference Interpretation Comments Range SARS-CoV-2 NEGATIVE SEE NOTE SARS-CoV-2 RNA NOT INTERPRETATION DETECTEDNegat bill (test code = 29469) results do not preclude SARS-C oV-2 infection and s hould notbe used as t he sole basis for patie nt management deci sions. Negativeresults must be combined wit h clinical observ ations, patient history ,and epidemiological information. Op timum specimen types and timingfor peak viral levels during infections caus ed by SARS-CoV-2 have notbeen determi laurel. Collection of m ultiple specimens or ty pes ofspecimens may be necessary to de tect virus. Improper specimencollect ion and handling, seque nce variability und er primers/probes, or organism presen t below the limit of de tection may lead to falsenegative r esults. Positive and ne gative predictive valu es oftesting are h ighly dependent on prevalence. Fal se negative testre sults are more likely when prevalence is h igh. SOURCE (test code = NASOPHARYNGEAL Note: [place] [address]) Matt Glenn [place] l-Time RT-PCR. The exp ected result or refer ence range is NEGATI VE (Not Detected). For more information reg arding COVID-19 testin g to include clinicalinforma tion, methodology det ail, intended use, F DA authorization andrecommended fact sheets for byron ents or healthcare prov iders, see NewTest Announcement: SARS-CoV-2 (COV ID-19) by NAAT at URL below (note,fact shee ts are provided by met hod given in report:[email or web address]:// [email or web address]/[email or web address] ians/cl ient-communicat ions/ Alternatively, see downloadable PD F fact sheet at:https://www. [email or web address]/[email or web address]-R T-PCR Note: Methodolo gy is Matt [place] l-Time RT-PCR. The exp ected result or refer ence range is NEGATI VE (Not Detected). For more information reg arding COVID-19 testin g to include clinicalinforma tion, methodology det ail, intended use, F DA authorization andrecommended fact sheets for byron ents or healthcare prov iders, see NewTest Announcement: SARS-CoV-2 (COV ID-19) by NAAT at URL below (note,fact shee ts are provided by met hod given in report:https:// [email or web address]/clinic ians/cl ient-communicat ions/ Alternatively, see downloadable PD F fact sheet at:https://www. CDEL/COVID-19-R T-PCR UNLESS OTHERWIS E INDICATED, ALL TESTING PERFORMED [facility] PATHOLOGY [facility], [id number] [place] [address] DIRECTOR: LEONA INIGUEZ M.D. [place] NUMBER [id number] CAP ACCREDITATION N O. [id number] SARS-CoV-2 (COVID-19) by RT-PCR (HIGH RISK)2021-12-01 00:00:00 Test Item Value Reference Range Interpretation Comments SARS-CoV-2 INTERPRETATION NEGATIVE (test code = 72535) SOURCE (test code = 48618) NASOPHARYNGEAL SARS-CoV-2 (COVID-19) by RT-PCR (HIGH RISK)2021-12-01 00:00:00 Test Item Value Reference Range Interpretation Comments SARS-CoV-2 INTERPRETATION NEGATIVE (test code = 88455) SOURCE (test code = 25788) NASOPHARYNGEAL SARS-CoV-2 (COVID-19) by RT-PCR (HIGH RISK)2021-12-01 00:00:00 Test Item Value Reference Range Interpretation Comments SARS-CoV-2 INTERPRETATION NEGATIVE (test code = 13337) SOURCE (test code = 66271) NASOPHARYNGEAL SARS-CoV-2 (COVID-19) by RT-PCR (HIGH RISK)2021-12-01 00:00:00 Test Item Value Reference Range Interpretation Comments SARS-CoV-2 INTERPRETATION NEGATIVE (test code = 11182) SOURCE (test code = 27188) NASOPHARYNGEAL VITAMIN D, 25 [id number] 00:00:00 Test Item Value Reference Range Interpretation Comments VITAMIN D, 25 OH (test code = 4958) 55 NG/ML VITAMIN D, 25 [id number] 00:00:00 Test Item Value Reference Range Interpretation Comments VITAMIN D, 25 OH (test code = 4958) 55 NG/ML VITAMIN D, 25 [id number] 00:00:00 Test Item Value Reference Range Interpretation Comments VITAMIN D, 25 OH (test code = 4958) 55 NG/ML VITAMIN D, 25 [id number] 00:00:00 Test Item Value Reference Range Interpretation Comments VITAMIN D, 25 OH (test code = 4958) 55 NG/ML VITAMIN [id number] 00:00:00 Test Item Value Reference Range Interpretation Comments VITAMIN B-12 (test code = 2840) 597 PG/ML VITAMIN [id number] 00:00:00 Test Item Value Reference Range Interpretation Comments VITAMIN B-12 (test code = 2840) 597 PG/ML CBC W/AUTO [id number] 00:00:00 Test Item Value Reference Range Interpretation Comments WBC (test code = 1001) 5.1 K/UL RBC (test code = 1002) 4.42 M/UL HEMOGLOBIN (test code = 1003) 14.3 G/DL HEMATOCRIT (test code = 1004) 41.1 % MCV (test code = 1005) 93.0 fL MCH (test code = 1006) 32.4 PG MCHC (test code = 1007) 34.8 G/DL RDW (test code = 1038) 12.7 % NEUTROPHILS (test code = 1008) 53.5 % LYMPHOCYTES (test code = 1010) 34.1 % MONOCYTES (test code = 1011) 5.5 % EOSINOPHILS (test code = 1012) 5.7 % BASOPHILS (test code = 1013) 1.0 % IMMATURE GRANYLOCYTES (test 0.2 % code = 1036) NUCLEATED RBCS (test code = 0.0 /100WBC'S 1065) PLATELET COUNT (test code = 265 K/UL 1015) ABSOLUTE NEUTROPHILS (test code 2.75 K/UL = 1066) ABSOLUTE LYMPHOCYTES (test code 1.75 K/UL = 1067) ABSOLUTE MONOCYTES (test code = 0.28 K/UL 1068) ABSOLUTE EOSINOPHILS (test code 0.29 K/UL = 1040) ABSOLUTE BASOPHILS (test code = 0.05 K/UL 1069) ABS IMMATURE GRANULOCYTES (test 0.01 K/UL code = 1020) ABS NUCLEATED RBCS (test code = 0.00 K/UL 19774) CBC W/AUTO [id number] 00:00:00 Test Item Value Reference Range Interpretation Comments WBC (test code = 1001) 5.1 K/UL RBC (test code = 1002) 4.42 M/UL HEMOGLOBIN (test code = 1003) 14.3 G/DL HEMATOCRIT (test code = 1004) 41.1 % MCV (test code = 1005) 93.0 fL MCH (test code = 1006) 32.4 PG MCHC (test code = 1007) 34.8 G/DL RDW (test code = 1038) 12.7 % NEUTROPHILS (test code = 1008) 53.5 % LYMPHOCYTES (test code = 1010) 34.1 % MONOCYTES (test code = 1011) 5.5 % EOSINOPHILS (test code = 1012) 5.7 % BASOPHILS (test code = 1013) 1.0 % IMMATURE GRANYLOCYTES (test 0.2 % code = 1036) NUCLEATED RBCS (test code = 0.0 /100WBC'S 1065) PLATELET COUNT (test code = 265 K/UL 1015) ABSOLUTE NEUTROPHILS (test code 2.75 K/UL = 1066) ABSOLUTE LYMPHOCYTES (test code 1.75 K/UL = 1067) ABSOLUTE MONOCYTES (test code = 0.28 K/UL 1068) ABSOLUTE EOSINOPHILS (test code 0.29 K/UL = 1040) ABSOLUTE BASOPHILS (test code = 0.05 K/UL 1069) ABS IMMATURE GRANULOCYTES (test 0.01 K/UL code = 1020) ABS NUCLEATED RBCS (test code = 0.00 K/UL 86221) CBC W/AUTO [id number] 00:00:00 Test Item Value Reference Range Interpretation Comments WBC (test code = 1001) 5.1 K/UL RBC (test code = 1002) 4.42 M/UL HEMOGLOBIN (test code = 1003) 14.3 G/DL HEMATOCRIT (test code = 1004) 41.1 % MCV (test code = 1005) 93.0 fL MCH (test code = 1006) 32.4 PG MCHC (test code = 1007) 34.8 G/DL RDW (test code = 1038) 12.7 % NEUTROPHILS (test code = 1008) 53.5 % LYMPHOCYTES (test code = 1010) 34.1 % MONOCYTES (test code = 1011) 5.5 % EOSINOPHILS (test code = 1012) 5.7 % BASOPHILS (test code = 1013) 1.0 % IMMATURE GRANYLOCYTES (test 0.2 % code = 1036) NUCLEATED RBCS (test code = 0.0 /100WBC'S 1065) PLATELET COUNT (test code = 265 K/UL 1015) ABSOLUTE NEUTROPHILS (test code 2.75 K/UL = 1066) ABSOLUTE LYMPHOCYTES (test code 1.75 K/UL = 1067) ABSOLUTE MONOCYTES (test code = 0.28 K/UL 1068) ABSOLUTE EOSINOPHILS (test code 0.29 K/UL = 1040) ABSOLUTE BASOPHILS (test code = 0.05 K/UL 1069) ABS IMMATURE GRANULOCYTES (test 0.01 K/UL code = 1020) ABS NUCLEATED RBCS (test code = 0.00 K/UL 12773) VITAMIN [id number] 00:00:00 Test Item Value Reference Range Interpretation Comments VITAMIN B-12 (test code = 2840) 597 PG/ML VITAMIN [id number] 00:00:00 Test Item Value Reference Range Interpretation Comments VITAMIN B-12 (test code = 2840) 597 PG/ML VITAMIN [id number] 00:00:00 Test Item Value Reference Range Interpretation Comments VITAMIN B-12 (test code = 2840) 597 PG/ML CBC W/AUTO [id number] 00:00:00 Test Item Value Reference Range Interpretation Comments WBC (test code = 1001) 5.1 K/UL RBC (test code = 1002) 4.42 M/UL HEMOGLOBIN (test code = 1003) 14.3 G/DL HEMATOCRIT (test code = 1004) 41.1 % MCV (test code = 1005) 93.0 fL MCH (test code = 1006) 32.4 PG MCHC (test code = 1007) 34.8 G/DL RDW (test code = 1038) 12.7 % NEUTROPHILS (test code = 1008) 53.5 % LYMPHOCYTES (test code = 1010) 34.1 % MONOCYTES (test code = 1011) 5.5 % EOSINOPHILS (test code = 1012) 5.7 % BASOPHILS (test code = 1013) 1.0 % IMMATURE GRANYLOCYTES (test 0.2 % code = 1036) NUCLEATED RBCS (test code = 0.0 /100WBC'S 1065) PLATELET COUNT (test code = 265 K/UL 1015) ABSOLUTE NEUTROPHILS (test code 2.75 K/UL = 1066) ABSOLUTE LYMPHOCYTES (test code 1.75 K/UL = 1067) ABSOLUTE MONOCYTES (test code = 0.28 K/UL 1068) ABSOLUTE EOSINOPHILS (test code 0.29 K/UL = 1040) ABSOLUTE BASOPHILS (test code = 0.05 K/UL 1069) ABS IMMATURE GRANULOCYTES (test 0.01 K/UL code = 1020) ABS NUCLEATED RBCS (test code = 0.00 K/UL 24887) CBC W/AUTO [id number] 00:00:00 Test Item Value Reference Range Interpretation Comments WBC (test code = 1001) 5.1 K/UL RBC (test code = 1002) 4.42 M/UL HEMOGLOBIN (test code = 1003) 14.3 G/DL HEMATOCRIT (test code = 1004) 41.1 % MCV (test code = 1005) 93.0 fL MCH (test code = 1006) 32.4 PG MCHC (test code = 1007) 34.8 G/DL RDW (test code = 1038) 12.7 % NEUTROPHILS (test code = 1008) 53.5 % LYMPHOCYTES (test code = 1010) 34.1 % MONOCYTES (test code = 1011) 5.5 % EOSINOPHILS (test code = 1012) 5.7 % BASOPHILS (test code = 1013) 1.0 % IMMATURE GRANYLOCYTES (test 0.2 % code = 1036) NUCLEATED RBCS (test code = 0.0 /100WBC'S 1065) PLATELET COUNT (test code = 265 K/UL 1015) ABSOLUTE NEUTROPHILS (test code 2.75 K/UL = 1066) ABSOLUTE LYMPHOCYTES (test code 1.75 K/UL = 1067) ABSOLUTE MONOCYTES (test code = 0.28 K/UL 1068) ABSOLUTE EOSINOPHILS (test code 0.29 K/UL = 1040) ABSOLUTE BASOPHILS (test code = 0.05 K/UL 1069) ABS IMMATURE GRANULOCYTES (test 0.01 K/UL code = 1020) ABS NUCLEATED RBCS (test code = 0.00 K/UL 10741) CBC W/AUTO [id number] 00:00:00 Test Item Value Reference Range Interpretation Comments WBC (test code = 1001) 5.1 K/UL RBC (test code = 1002) 4.42 M/UL HEMOGLOBIN (test code = 1003) 14.3 G/DL HEMATOCRIT (test code = 1004) 41.1 % MCV (test code = 1005) 93.0 fL MCH (test code = 1006) 32.4 PG MCHC (test code = 1007) 34.8 G/DL RDW (test code = 1038) 12.7 % NEUTROPHILS (test code = 1008) 53.5 % LYMPHOCYTES (test code = 1010) 34.1 % MONOCYTES (test code = 1011) 5.5 % EOSINOPHILS (test code = 1012) 5.7 % BASOPHILS (test code = 1013) 1.0 % IMMATURE GRANYLOCYTES (test 0.2 % code = 1036) NUCLEATED RBCS (test code = 0.0 /100WBC'S 1065) PLATELET COUNT (test code = 265 K/UL 1015) ABSOLUTE NEUTROPHILS (test code 2.75 K/UL = 1066) ABSOLUTE LYMPHOCYTES (test code 1.75 K/UL = 1067) ABSOLUTE MONOCYTES (test code = 0.28 K/UL 1068) ABSOLUTE EOSINOPHILS (test code 0.29 K/UL = 1040) ABSOLUTE BASOPHILS (test code = 0.05 K/UL 1069) ABS IMMATURE GRANULOCYTES (test 0.01 K/UL code = 1020) ABS NUCLEATED RBCS (test code = 0.00 K/UL 55612) VITAMIN [id number] 00:00:00 Test Item Value Reference Range Interpretation Comments VITAMIN B-12 (test code = 2840) 597 PG/ML LIPID [id number] 00:00:00 Test Item Value Reference Range Interpretation Comments CHOLESTEROL (test code = 2210) 229 MG/DL TRIGLYCERIDES (test code = 2232) 80 MG/DL HDL CHOLESTEROL (test code = 2220) 87 MG/DL CALC LDL CHOL (test code = 2237) 125 MG/DL RISK RATIO LDL/HDL (test code = 1.44 RATIO 2238) LIPID [id number] 00:00:00 Test Item Value Reference Range Interpretation Comments CHOLESTEROL (test code = 2210) 229 MG/DL TRIGLYCERIDES (test code = 2232) 80 MG/DL HDL CHOLESTEROL (test code = 2220) 87 MG/DL CALC LDL CHOL (test code = 2237) 125 MG/DL RISK RATIO LDL/HDL (test code = 1.44 RATIO 2238) COMPREHENSIVE METABOLIC [id number] 00:00:00 Test Item Value Reference Range Interpretation Comments GLUCOSE (test code = 2217) 100 MG/DL BUN (test code = 2208) 10 MG/DL CREATININE (test code = 2214) 0.96 MG/DL eGFR AMER. (test code 70 ML/MIN/1.73 = 68787) eGFR NON- AMER. (test 61 ML/MIN/1.73 code = 73837) CALC BUN/CREAT (test code = 10 RATIO 2235) SODIUM (test code = 2231) 144 MEQ/L POTASSIUM (test code = 2228) 4.3 MEQ/L CHLORIDE (test code = 2215) 104 MEQ/L CARBON DIOXIDE (test code = 28 MEQ/L 2205) CALCIUM (test code = 2209) 9.2 MG/DL PROTEIN, TOTAL (test code = 6.7 G/DL 2228) ALBUMIN (test code = 2201) 4.2 G/DL CALC GLOBULIN (test code = 2.5 G/DL 2239) CALC A/G RATIO (test code = 1.7 RATIO 2234) BILIRUBIN, TOTAL (test code = 0.3 MG/DL 2206) ALKALINE PHOSPHATASE (test 79 U/L code = 2204) AST (test code = 2218) 17 U/L ALT (test code = 2219) 15 U/L COMPREHENSIVE METABOLIC [id number] 00:00:00 Test Item Value Reference Range Interpretation Comments GLUCOSE (test code = 2217) 100 MG/DL BUN (test code = 2208) 10 MG/DL CREATININE (test code = 2214) 0.96 MG/DL eGFR AMER. (test code 70 ML/MIN/1.73 = 41582) eGFR NON- AMER. (test 61 ML/MIN/1.73 code = 51892) CALC BUN/CREAT (test code = 10 RATIO 2235) SODIUM (test code = 2231) 144 MEQ/L POTASSIUM (test code = 2228) 4.3 MEQ/L CHLORIDE (test code = 2215) 104 MEQ/L CARBON DIOXIDE (test code = 28 MEQ/L 2205) CALCIUM (test code = 2209) 9.2 MG/DL PROTEIN, TOTAL (test code = 6.7 G/DL 2228) ALBUMIN (test code = 2201) 4.2 G/DL CALC GLOBULIN (test code = 2.5 G/DL 2239) CALC A/G RATIO (test code = 1.7 RATIO 2233) BILIRUBIN, TOTAL (test code = 0.3 MG/DL 2206) ALKALINE PHOSPHATASE (test 79 U/L code = 2204) AST (test code = 2218) 17 U/L ALT (test code = 2219) 15 U/L LIVER (HEPATIC) FUNCTION [id number] 00:00:00 Test Item Value Reference Range Interpretation Comments PROTEIN, TOTAL (test code = 2229) 6.7 G/DL ALBUMIN (test code = 2201) 4.2 G/DL BILIRUBIN, TOTAL (test code = 2207) 0.3 MG/DL BILIRUBIN, DIRECT (test code = 0.1 MG/DL 2021) ALKALINE PHOSPHATASE (test code = 79 U/L 2203) AST (test code = 2218) 17 U/L ALT (test code = 2219) 15 U/L LIVER (HEPATIC) FUNCTION [id number] 00:00:00 Test Item Value Reference Range Interpretation Comments PROTEIN, TOTAL (test code = 2229) 6.7 G/DL ALBUMIN (test code = 2201) 4.2 G/DL BILIRUBIN, TOTAL (test code = 2207) 0.3 MG/DL BILIRUBIN, DIRECT (test code = 0.1 MG/DL 2021) ALKALINE PHOSPHATASE (test code = 79 U/L 2203) AST (test code = 2218) 17 U/L ALT (test code = 2219) 15 U/L LIPID [id number] 00:00:00 Test Item Value Reference Range Interpretation Comments CHOLESTEROL (test code = 2210) 229 MG/DL TRIGLYCERIDES (test code = 2232) 80 MG/DL HDL CHOLESTEROL (test code = 2220) 87 MG/DL CALC LDL CHOL (test code = 2237) 125 MG/DL RISK RATIO LDL/HDL (test code = 1.44 RATIO 2238) LIPID [id number] 00:00:00 Test Item Value Reference Range Interpretation Comments CHOLESTEROL (test code = 2210) 229 MG/DL TRIGLYCERIDES (test code = 2232) 80 MG/DL HDL CHOLESTEROL (test code = 2220) 87 MG/DL CALC LDL CHOL (test code = 2237) 125 MG/DL RISK RATIO LDL/HDL (test code = 1.44 RATIO 2238) COMPREHENSIVE METABOLIC [id number] 00:00:00 Test Item Value Reference Range Interpretation Comments GLUCOSE (test code = 2217) 100 MG/DL BUN (test code = 2208) 10 MG/DL CREATININE (test code = 2214) 0.96 MG/DL eGFR AMER. (test code 70 ML/MIN/1.73 = 33075) eGFR NON- AMER. (test 61 ML/MIN/1.73 code = 34632) CALC BUN/CREAT (test code = 10 RATIO 2235) SODIUM (test code = 2231) 144 MEQ/L POTASSIUM (test code = 2228) 4.3 MEQ/L CHLORIDE (test code = 2215) 104 MEQ/L CARBON DIOXIDE (test code = 28 MEQ/L 2205) CALCIUM (test code = 2209) 9.2 MG/DL PROTEIN, TOTAL (test code = 6.7 G/DL 2228) ALBUMIN (test code = 220) 4.2 G/DL CALC GLOBULIN (test code = 2.5 G/DL 2239) CALC A/G RATIO (test code = 1.7 RATIO 2233) BILIRUBIN, TOTAL (test code = 0.3 MG/DL 2206) ALKALINE PHOSPHATASE (test 79 U/L code = 2204) AST (test code = 2218) 17 U/L ALT (test code = 2219) 15 U/L COMPREHENSIVE METABOLIC [id number] 00:00:00 Test Item Value Reference Range Interpretation Comments GLUCOSE (test code = 2217) 100 MG/DL BUN (test code = 2208) 10 MG/DL CREATININE (test code = 2214) 0.96 MG/DL eGFR AMER. (test code 70 ML/MIN/1.73 = 56989) eGFR NON- AMER. (test 61 ML/MIN/1.73 code = 99645) CALC BUN/CREAT (test code = 10 RATIO 2235) SODIUM (test code = 2231) 144 MEQ/L POTASSIUM (test code = 2228) 4.3 MEQ/L CHLORIDE (test code = 2215) 104 MEQ/L CARBON DIOXIDE (test code = 28 MEQ/L 2205) CALCIUM (test code = 2209) 9.2 MG/DL PROTEIN, TOTAL (test code = 6.7 G/DL 2228) ALBUMIN (test code = 2201) 4.2 G/DL CALC GLOBULIN (test code = 2.5 G/DL 2239) CALC A/G RATIO (test code = 1.7 RATIO 2233) BILIRUBIN, TOTAL (test code = 0.3 MG/DL 2206) ALKALINE PHOSPHATASE (test 79 U/L code = 2204) AST (test code = 2218) 17 U/L ALT (test code = 2219) 15 U/L LIVER (HEPATIC) FUNCTION [id number] 00:00:00 Test Item Value Reference Range Interpretation Comments PROTEIN, TOTAL (test code = 2229) 6.7 G/DL ALBUMIN (test code = 2201) 4.2 G/DL BILIRUBIN, TOTAL (test code = 2207) 0.3 MG/DL BILIRUBIN, DIRECT (test code = 0.1 MG/DL 2021) ALKALINE PHOSPHATASE (test code = 79 U/L 2203) AST (test code = 2218) 17 U/L ALT (test code = 2219) 15 U/L LIVER (HEPATIC) FUNCTION [id number] 00:00:00 Test Item Value Reference Range Interpretation Comments PROTEIN, TOTAL (test code = 2229) 6.7 G/DL ALBUMIN (test code = 2201) 4.2 G/DL BILIRUBIN, TOTAL (test code = 2207) 0.3 MG/DL BILIRUBIN, DIRECT (test code = 0.1 MG/DL 2021) ALKALINE PHOSPHATASE (test code = 79 U/L 2203) AST (test code = 2218) 17 U/L ALT (test code = 2219) 15 U/L CBC (INCLUDES DIFF/PLT)2019-12-11 00:00:00 Test Item Value Reference Range Interpretation Comments WHITE BLOOD CELL COUNT (test 6.6 Thousand/uL code = 6690-2) RED BLOOD CELL COUNT (test 4.20 Million/uL code = 789-8) HEMOGLOBIN (test code = 13.4 g/dL 718-7) HEMATOCRIT (test code = 38.4 % 4544-3) MCV (test code = 787-2) 91.4 fL MCH (test code = 785-6) 31.9 pg MCHC (test code = 786-4) 34.9 g/dL RDW (test code = 788-0) 12.9 % PLATELET COUNT (test code = 291 Thousand/uL 777-3) MPV (test code = 776-5) 9.2 fL ABSOLUTE NEUTROPHILS (test 3907 cells/uL code = 751-8) ABSOLUTE BAND NEUTROPHILS DNR cells/uL (test code = 19927-7) ABSOLUTE METAMYELOCYTES (test DNR cells/uL code = 73533-4) ABSOLUTE MYELOCYTES (test DNR cells/uL code = 88658-9) ABSOLUTE PROMYELOCYTES (test DNR cells/uL code = 81913-1) ABSOLUTE LYMPHOCYTES (test 2092 cells/uL code = 731-0) ABSOLUTE MONOCYTES (test code 429 cells/uL = 742-7) ABSOLUTE EOSINOPHILS (test 132 cells/uL code = 711-2) ABSOLUTE BASOPHILS (test code 40 cells/uL = 704-7) ABSOLUTE BLASTS (test code = DNR cells/uL 55355-2) ABSOLUTE NUCLEATED RBC (test DNR cells/uL code = 69895-0) NEUTROPHILS (test code = 59.2 % 770-8) BAND NEUTROPHILS (test code = DNR % 764-1) METAMYELOCYTES (test code = DNR % 740-1) MYELOCYTES (test code = DNR % 749-2) PROMYELOCYTES (test code = DNR % 783-1) LYMPHOCYTES (test code = 31.7 % 736-9) REACTIVE LYMPHOCYTES (test DNR % code = 55005-4) MONOCYTES (test code = 6.5 % 5905-5) EOSINOPHILS (test code = 2.0 % 713-8) BASOPHILS (test code = 706-2) 0.6 % BLASTS (test code = 709-6) DNR % NUCLEATED RBC (test code = DNR /100WBC 09245-9) COMMENT(S) (test code = DNR 8251-1) VITAMIN [id number] 00:00:00 Test Item Value Reference Range Interpretation Comments VITAMIN B12 (test code = 2132-9) 737 pg/mL LIPID PANEL (REFL)2019-12-11 00:00:00 Test Item Value Reference Range Interpretation Comments CHOLESTEROL, TOTAL (test code 280 mg/dL = 2093-3) HDL CHOLESTEROL (test code = 77 mg/dL 5-9) TRIGLYCERIDES (test code = 97 mg/dL 2571-8) LDL-CHOLESTEROL (test code = 181 mg/dL(calc) 63656-9) CHOL/HDLC RATIO (test code = 3.6 (calc) 9830-1) NON HDL CHOLESTEROL (test 203 mg/dL(calc) code = 53471-9) BASIC METABOLIC [id number] 00:00:00 Test Item Value Reference Range Interpretation Comments GLUCOSE (test code = 78 mg/dL 2345-7) UREA NITROGEN (BUN) 13 mg/dL (test code = 3094-0) CREATININE (test code = 0.95 mg/dL 2160-0) eGFR NON-AFR. LUXEMBOURGER 62 mL/min/1.73m2 (test code = 66985-4) eGFR 72 mL/min/1.73m2 (test code = 58663-4) BUN/CREATININE RATIO NOT APPLICABLE (calc) (test code = 3097-3) SODIUM (test code = 135 mmol/L 2951-2) POTASSIUM (test code = 4.7 mmol/L 2823-3) CHLORIDE (test code = 98 mmol/L 2075-0) CARBON DIOXIDE (test 26 mmol/L code = 8-9) CALCIUM (test code = 8.9 mg/dL 66099-1) CBC (INCLUDES DIFF/PLT)2019-12-11 00:00:00 Test Item Value Reference Range Interpretation Comments WHITE BLOOD CELL COUNT (test 6.6 Thousand/uL code = 6690-2) RED BLOOD CELL COUNT (test 4.20 Million/uL code = 789-8) HEMOGLOBIN (test code = 13.4 g/dL 718-7) HEMATOCRIT (test code = 38.4 % 4544-3) MCV (test code = 787-2) 91.4 fL MCH (test code = 785-6) 31.9 pg MCHC (test code = 786-4) 34.9 g/dL RDW (test code = 788-0) 12.9 % PLATELET COUNT (test code = 291 Thousand/uL 777-3) MPV (test code = 776-5) 9.2 fL ABSOLUTE NEUTROPHILS (test 3907 cells/uL code = 751-8) ABSOLUTE BAND NEUTROPHILS DNR cells/uL (test code = 63636-1) ABSOLUTE METAMYELOCYTES (test DNR cells/uL code = 71954-6) ABSOLUTE MYELOCYTES (test DNR cells/uL code = 93831-6) ABSOLUTE PROMYELOCYTES (test DNR cells/uL code = 26405-8) ABSOLUTE LYMPHOCYTES (test 2092 cells/uL code = 731-0) ABSOLUTE MONOCYTES (test code 429 cells/uL = 742-7) ABSOLUTE EOSINOPHILS (test 132 cells/uL code = 711-2) ABSOLUTE BASOPHILS (test code 40 cells/uL = 704-7) ABSOLUTE BLASTS (test code = DNR cells/uL 50522-9) ABSOLUTE NUCLEATED RBC (test DNR cells/uL code = 74830-7) NEUTROPHILS (test code = 59.2 % 770-8) BAND NEUTROPHILS (test code = DNR % 764-1) METAMYELOCYTES (test code = DNR % 740-1) MYELOCYTES (test code = DNR % 749-2) PROMYELOCYTES (test code = DNR % 783-1) LYMPHOCYTES (test code = 31.7 % 736-9) REACTIVE LYMPHOCYTES (test DNR % code = 71096-6) MONOCYTES (test code = 6.5 % 5905-5) EOSINOPHILS (test code = 2.0 % 713-8) BASOPHILS (test code = 706-2) 0.6 % BLASTS (test code = 709-6) DNR % NUCLEATED RBC (test code = DNR /100WBC 71776-4) COMMENT(S) (test code = DNR 8251-1) VITAMIN [id number] 00:00:00 Test Item Value Reference Range Interpretation Comments VITAMIN B12 (test code = 2132-9) 737 pg/mL LIPID PANEL (REFL)2019-12-11 00:00:00 Test Item Value Reference Range Interpretation Comments CHOLESTEROL, TOTAL (test code 280 mg/dL = 2093-3) HDL CHOLESTEROL (test code = 77 mg/dL 5-9) TRIGLYCERIDES (test code = 97 mg/dL 2571-8) LDL-CHOLESTEROL (test code = 181 mg/dL(calc) 06362-7) CHOL/HDLC RATIO (test code = 3.6 (calc) 9830-1) NON HDL CHOLESTEROL (test 203 mg/dL(calc) code = 76993-4) BASIC METABOLIC [id number] 00:00:00 Test Item Value Reference Range Interpretation Comments GLUCOSE (test code = 78 mg/dL 2345-7) UREA NITROGEN (BUN) 13 mg/dL (test code = 3094-0) CREATININE (test code = 0.95 mg/dL 0-0) eGFR NON-AFR. LUXEMBOURGER 62 mL/min/1.73m2 (test code = 93915-2) eGFR 72 mL/min/1.73m2 (test code = 02437-6) BUN/CREATININE RATIO NOT APPLICABLE (calc) (test code = 3097-3) SODIUM (test code = 135 mmol/L 2951-2) POTASSIUM (test code = 4.7 mmol/L 2823-3) CHLORIDE (test code = 98 mmol/L 5-0) CARBON DIOXIDE (test 26 mmol/L code = 2027-9) CALCIUM (test code = 8.9 mg/dL 23127-3)
[2023-01-01 01:34] LABS: Absolute Lymphocytes (CBC) 2.4 K/uL (0.7-4.9); Hematocrit 42.2 % (36.0-45.0); Lymphocytes % 41.5 % (15.3-44.8); MCV 94.1 fL (80-100); MPV 6.6 fL (7.6-11.3); RBC Red Blood Cell Count 4.48 M/uL (3.86-4.86)
[2023-01-01 02:00] LABS: Potassium 3.9 mmol/L (3.5-5.1); Troponin High Sensitivity 7.1 pg/mL (<58.9)
--- NOTE | 2023-01-01 04:11 | EDPHYS ---
Physician Documentation [facility] Name: Whit Rangel Age: 67 yrs Sex: Female : 1955 Arrival Date: 01/01/2023 Time: 00:55 Bed 20 Private MD: ED Physician Phillip Kohler HPI: 01/01 01:15 This 67 yrs old Female presents to ER via Unassigned with complaints of High Blood ms3 Pressure, Chest Tightness. 01:15 67-year-old female with past medical history of hypertension, CVA, sleep apnea presents ms3 for chest tightness and elevated blood pressure. Patient states her chest became tight at approximate 11 PM. Patient states the discomfort is a 2-3/10. Patient states she took her blood pressure at 12:15 AM and found it to be 179/76. Patient denies alleviating or inciting factors. Historical: - Allergies: 01:21 Morphine; ll3 01:21 Cipro; ll3 01:21 Horizant; ll3 01:21 QUINOLONES; ll3 - Home Meds: 01:21 Prozac Oral [Active]; Baclofen Oral [Active]; Valacyclovir Oral [Active]; ezetimibe ll3 oral [Active]; Albuterol Inhl [Active]; Mag Citrate Oral [Active]; Calcium Citrate Oral [Active]; Omeprazole Oral [Active]; - PMHx: 01:21 Hypertensive disorder; Asthma; ll3 - PSHx: 01:21 Tonsillectomy; Total abdominal hysterectomy; Thyroidectomy; Partial; Gastric bipass; ll3 - Immunization history:: Client reports receiving the 2nd dose of the Covid vaccine. - Social history:: Smoking status: Patient denies any tobacco usage or history of. ROS: 01:15 Constitutional: Negative for fever, and chills. Neck: Negative for injury, pain, and ms3 swelling. 01:15 Respiratory: Negative for shortness of breath, cough, wheezing, and pleuritic chest pain, Abdomen/GI: Negative for abdominal pain, nausea, vomiting, diarrhea, and constipation, MS/Extremity: Negative for injury and deformity, Skin: Negative for injury, rash, and discoloration, Neuro: Negative for headache, weakness, numbness, tingling. 01:15 Cardiovascular: Positive for chest pain. 01:15 All other systems are negative. Exam: 01:15 Constitutional: This is a well developed, well nourished patient who is awake, alert, ms3 and in no acute distress. Head/Face: Normocephalic, atraumatic. Eyes: Pupils equal round and reactive to light, extra-ocular motions intact. Lids and lashes normal. Conjunctiva and sclera are non-icteric and not injected. Periorbital areas with no swelling, redness, or edema. Neck: Trachea midline, no cervical lymphadenopathy. Supple, full range of motion without nuchal rigidity, or vertebral point tenderness. No Meningismus. Chest/axilla: Normal chest wall appearance and motion. Nontender with no deformity. Cardiovascular: Regular rate and rhythm with a normal S1 and S2. No gallops, murmurs, or rubs. Normal PMI, no JVD. No pulse deficits. Respiratory: Lungs have equal breath sounds bilaterally, clear to auscultation and percussion. No rales, rhonchi or wheezes noted. No increased work of breathing, no retractions or nasal flaring. Abdomen/GI: Soft, non-tender, with normal bowel sounds. No distension or tympany. No guarding or rebound. No evidence of tenderness throughout. Skin: Warm, dry with normal turgor. Normal color with no rashes, no lesions, and no evidence of cellulitis. MS/ Extremity: Pulses equal, no cyanosis. Neurovascular intact. Full, normal range of motion. 01:22 ECG was reviewed by the Attending Physician. ms3 Vital Signs: 01:00 BP 128 / 69; Pulse 78; Resp 15 S; Pulse Ox 96% on R/A; ha1 01:16 BP 128 / 69; Pulse 103; Resp 20; Temp 97.8(O); Pulse Ox 98% on R/A; Weight 110.68 kg ll3 (R); Height 5 ft. 8 in. (172.72 cm) (R); Pain 3/10; 01:56 BP 147 / 70; Pulse 78; Resp 17 S; Pulse Ox 96% ; ha1 02:30 BP 133 / 60; Pulse 73; Resp 16 S; Pulse Ox 97% on R/A; ha1 03:20 BP 146 / 76; Pulse 76; Resp 18 S; Pulse Ox 97% on R/A; ha1 04:20 BP 135 / 72; Pulse 76; Resp 18 S; Pulse Ox 97% on R/A; ha1 01:16 Body Mass Index 37.10 (110.68 kg, 172.72 cm) ll3 MDM: 01:14 Patient medically screened. ms3 01:15 Differential diagnosis: hypertensive crisis, ACS vs Chest pain. ms3 05:34 Data reviewed: vital signs, nurses notes, lab test result(s), EKG, radiologic studies, ms3 and as a result, I will discharge patient. Consideration of Admission/Observation Escalation of care including admission/observation considered. Troponins trended in the emergency department without elevation. 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 Counseling: I had a detailed discussion with the patient and/or guardian regarding: the historical points, exam findings, and any diagnostic results supporting the discharge/admit diagnosis, lab results, radiology results, the need for outpatient follow up, to return to the emergency department if symptoms worsen or persist or if there are any questions or concerns that arise at home. ED course: Discussed labs, chest x-ray, EKG with patient and her . Patient to follow-up as instructed. All questions were answered. Return precautions discussed include worsening symptoms, or any other concerns. On reevaluation patient is alert and oriented x4, no apparent distress, nontoxic, ambulatory in emergency department, speaking full sentences. 01/01 01:00 Order name: Basic Metabolic Panel; Complete Time: 02:03 01/01 01:00 Order name: CBC with Diff; Complete Time: 02:03 01/01 01:00 Order name: Troponin HS; Complete Time: 02:03 01/01 01:00 Order name: XRAY Chest (1 view) 01/01 01:00 Order name: EKG; Complete Time: 01:01 01/01 03:27 Order name: Troponin High Sensitivity; Complete Time: 04:07 01/01 01:00 Order name: Cardiac monitoring; Complete Time: 01:30 01/01 01:00 Order name: EKG - Nurse/Tech; Complete Time: 01:30 01/01 01:00 Order name: IV Saline Lock; Complete Time: :35 ms3 01/01 01:00 Order name: Labs collected and sent; Complete Time: :35 ms3 01/01 01:00 Order name: O2 Per Protocol; Complete Time: :35 ms3 01/01 01:00 Order name: O2 Sat Monitoring; Complete Time: :35 ms3 01/01 02:34 Order name: Repeat Cardiac Enzymes at: 0330; Complete Time: 03:44 ms3 EC:22 Rate is 90 beats/min. Rhythm is regular. QRS Mulga is Normal. GA interval is normal. QRS ms3 interval is normal. Clinical impression: Normal ECG. Interpreted by me. Reviewed by me. Administered Medications: No medications were administered Disposition Summary: 01/01/23 04:11 Discharge Ordered Location: Home ms3 Condition: Stable ms3 Diagnosis - Chest pain, unspecified ms3 - Essential (primary) hypertension ms3 Followup: ms3 - With: Surjit Monroe MD - When: 2 - 3 days - Reason: Recheck today's complaints Discharge Instructions: - Discharge Summary Sheet ms3 - Nonspecific Chest Pain, Adult ms3 Forms: - Medication Reconciliation Form ms3 - Thank You Letter ms3 - Antibiotic Education ms3 - Prescription Opioid Use ms3 Signatures: Dispatcher [employer] EDPhillip Simmons DO DO ms3 Sagar Vanessa, RN RN ll3 Corrections: (The following items were deleted from the chart) 01:27 01:21 Home Meds: symbibcort; ll3 ll3
--- NOTE | 2023-01-01 04:11 | ER ---
Nurse's Notes [facility] Name: Whit Rangel Age: 67 yrs Sex: Female : 1955 Arrival Date: 01/01/2023 Time: 00:55 Bed 20 Private MD: Diagnosis: Chest pain, unspecified;Essential (primary) hypertension Presentation: 01/01 01:16 Chief complaint: Patient states: C/o high BP at home, H/A, chest tightness, and body ll3 aches, states pain is 3/10. Coronavirus screen: Vaccine status: Patient reports receiving the 2nd dose of the covid vaccine. headache. Ebola Screen: No symptoms or risks identified at this time. Initial Sepsis Screen: Does the patient meet any 2 criteria? No. Patient's initial sepsis screen is negative. Does the patient have a suspected source of infection? No. Patient's initial sepsis screen is negative. Risk Assessment: Do you want to hurt yourself or someone else? Patient reports no desire to harm self or others. Onset of symptoms was December 31, 2022 at 23:30. 01:16 Method Of Arrival: Ambulatory ll3 01:16 Acuity: ONESIMO 2 ll3 Historical: - Allergies: 01:21 Morphine; ll3 01:21 Cipro; ll3 01:21 Horizant; ll3 01:21 QUINOLONES; ll3 - Home Meds: 01:21 Prozac Oral [Active]; Baclofen Oral [Active]; Valacyclovir Oral [Active]; ezetimibe ll3 oral [Active]; Albuterol Inhl [Active]; Mag Citrate Oral [Active]; Calcium Citrate Oral [Active]; Omeprazole Oral [Active]; - PMHx: 01:21 Hypertensive disorder; Asthma; ll3 - PSHx: 01:21 Tonsillectomy; Total abdominal hysterectomy; Thyroidectomy; Partial; Gastric bipass; ll3 - Immunization history:: Client reports receiving the 2nd dose of the Covid vaccine. - Social history:: Smoking status: Patient denies any tobacco usage or history of. Screenin:57 [facility] ED Fall Risk Assessment (Adult) History of falling in the last 3 months, ha1 including since admission No falls in past 3 months (0 pts) Confusion or Disorientation No (0 pts) Intoxicated or Sedated No (0 pts) Impaired Gait No (0 pts) Mobility Assist Device Used No (0 pt) Altered Elimination No (0 pt) Score/Fall Risk Level 0 - 2 = Low Risk Oriented to surroundings, Maintained a safe environment, Educated pt \T\ family on fall prevention, incl call for assistance when getting out of bed, Hourly rounding (assess needs \T\ fall precautionary measures) done. 01:38 Abuse screen: Denies threats or abuse. Denies injuries from another. Nutritional ha1 screening: No deficits noted. Tuberculosis screening: No symptoms or risk factors identified. Assessment: 00:57 General: Appears comfortable, Behavior is calm, cooperative. Pain: Complains of pain in ha1 chest pressure Pain does not radiate. Pain Pain began suddenly. Neuro: Level of Consciousness is awake, alert, obeys commands, Oriented to person, place, time, situation. Cardiovascular: Reports since chest pressure and elevated BP Heart tones S1 S2 present Capillary refill < 3 seconds Patient's skin is warm and dry. Respiratory: Airway is patent Respiratory effort is even, unlabored, Respiratory pattern is regular, symmetrical, Breath sounds are clear bilaterally. GI: No signs and/or symptoms were reported involving the gastrointestinal system. Abdomen is round non-distended, Bowel sounds present X 4 quads. : No signs and/or symptoms were reported regarding the genitourinary system. EENT: No deficits noted. No signs and/or symptoms were reported regarding the EENT system. Derm: Skin is healthy with good turgor, Skin is pink, warm \T\ dry. Musculoskeletal: Circulation, motion, and sensation intact. 01:56 Reassessment: Patient and/or family updated on plan of care and expected duration. Pain ha1 level reassessed. Patient is alert, oriented x 3, equal unlabored respirations, skin warm/dry/pink. awaiting on lab results. 02:20 Reassessment: Patient and/or family updated on plan of care and expected duration. Pain ha1 level reassessed. Patient is alert, oriented x 3, equal unlabored respirations, skin warm/dry/pink. explained the need to repeat lab work. 03:20 Reassessment: Patient and/or family updated on plan of care and expected duration. Pain ha1 level reassessed. Patient is alert, oriented x 3, equal unlabored respirations, skin warm/dry/pink. awaiting on lab results. rescreening of cardiac enzymes. 04:20 Reassessment: Patient and/or family updated on plan of care and expected duration. Pain ha1 level reassessed. Patient is alert, oriented x 3, equal unlabored respirations, skin warm/dry/pink. Patient denies pain at this time. Patient states symptoms have improved. Vital Signs: 01:00 BP 128 / 69; Pulse 78; Resp 15 S; Pulse Ox 96% on R/A; ha1 01:16 BP 128 / 69; Pulse 103; Resp 20; Temp 97.8(O); Pulse Ox 98% on R/A; Weight 110.68 kg ll3 (R); Height 5 ft. 8 in. (172.72 cm) (R); Pain 3/10; 01:56 BP 147 / 70; Pulse 78; Resp 17 S; Pulse Ox 96% ; ha1 02:30 BP 133 / 60; Pulse 73; Resp 16 S; Pulse Ox 97% on R/A; ha1 03:20 BP 146 / 76; Pulse 76; Resp 18 S; Pulse Ox 97% on R/A; ha1 04:20 BP 135 / 72; Pulse 76; Resp 18 S; Pulse Ox 97% on R/A; ha1 01:16 Body Mass Index 37.10 (110.68 kg, 172.72 cm) ll3 ED Course: 00:55 Patient arrived in ED. ja2 00:57 Patient has correct armband on for positive identification. Bed in low position. Call ha1 light in reach. Side rails up X 1. Adult w/ patient. 00:57 Client placed on continuous cardiac and pulse oximetry monitoring. NIBP monitoring ha1 applied. 00:57 Patient maintains SpO2 saturation greater than 95% on room air. ha1 00:59 Phillip Kohler DO is Attending Physician. ms3 01:08 Josefa Beltran, YOUNG is Primary Nurse. ha1 01:15 Inserted saline lock: 20 gauge in left antecubital area, using aseptic technique. Blood ha1 collected. 01:21 Triage completed. 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 EKG completed in triage. Results shown to MD. 01:35 Basic Metabolic Panel Sent. ha1 01:35 CBC with Diff Sent. ha1 01:35 Troponin HS Sent. ha1 01:43 XRAY Chest (1 view) In Process Unspecified. EDMS 03:44 Troponin High Sensitivity Sent. ha1 04:10 Surjit Monroe MD is Referral Physician. ms3 04:23 No provider procedures requiring assistance completed. IV discontinued, intact, ha1 bleeding controlled, No redness/swelling at site. Pressure dressing applied. Administered Medications: No medications were administered Medication: 04:24 VIS not applicable for this client. ha1 Outcome: 04:11 Discharge ordered by . ms3 04:23 Discharged to home ambulatory, with family. ha1 04:23 Condition: stable 04:23 Discharge instructions given to patient, family, Instructed on discharge instructions, follow up and referral plans. Demonstrated understanding of instructions, follow-up care. 04:24 Patient left the ED. ha1 Signatures: Dispatcher [employer] EDMS Phillip Kohler DO DO ms3 Sharla Sanchez2 Sagar Vanessa RN RN 3 Josefa Beltran, YOUNG RN ha1 Corrections: (The following items were deleted from the chart) 01:27 01:21 Home Meds: symbibcort; ll3 ll3 03:45 03:20 Reassessment: Patient and/or family updated on plan of care and expected ha1 duration. Pain level reassessed. Patient is alert, oriented x 3, equal unlabored respirations, skin warm/dry/pink. explained the need to repeat lab work. ha1
[2023-01-01 04:48] VITALS: TEMP 97.8
[2023-01-01 04:50] VITALS: O2SAT 97
[2023-01-01 04:52] VITALS: BP 135/72
--- NOTE | 2023-01-01 19:04 | RAD REPORT ---
EXAM DESCRIPTION: XR Chest, 1 View CLINICAL HISTORY: The patient is 67 years old and is Female; CHEST PAIN TECHNIQUE: Frontal view of the chest. COMPARISON: No relevant prior studies available. FINDINGS: LUNGS: Unremarkable. No consolidation. PLEURAL SPACE: Unremarkable. No pneumothorax. HEART: Unremarkable. No cardiomegaly. MEDIASTINUM: Unremarkable. BONES/JOINTS: Unremarkable. UPPER ABDOMEN: Unremarkable as visualized. IMPRESSION: No acute cardiopulmonary process. Electronically signed by: Tonia Kelley MD 01/01/2023 1:53 AM ELEVATOR OPERATOR SERVICE Due to temporary technical issues with the PACS/Fluency reporting system, reports are being signed by the in house radiologists without review as a courtesy to insure prompt reporting. The interpreting radiologist is fully responsible for the content of the report.
--- NOTE | 2023-01-03 17:21 | EKG ---
Test Date: 2023-01-01 Test Time: 01:14:20 Multiple Drum Sander: MARLEN MEASUREMENT RESULTS: Intervals: Rate: 90 NC: 134 QRSD: 82 QT: 386 QTc: 472 [place]: P: 61 NC: 134 QRS: 47 T: 68 INTERPRETIVE STATEMENTS: Normal sinus rhythm Normal ECG Compared to ECG 09/01/2005 11:41:00 No significant changes Electronically Signed On 01-03-23 17:14:19 GREETING CARD MAKER by Surjit Monroe
== END 2023-01-01 04:24 | disposition home or self-care (01) ==
LOC: ER 00:51
DX: R07.89 Other chest pain (principal); I10 Essential (primary) hypertension; Z88.1 Allergy status to other antibiotic agents; Z88.5 Allergy status to narcotic agent; Z98.84 Bariatric surgery status
CPT/HCPCS: 36415; 71045; 80048; 84484; 85025; 93005; 99284